=== PATIENT | male | born 1985 | race Two or more races ===

== ENCOUNTER 2016-10-03 08:49 | Emergency (ER) | payer BC ==
[~2016-10-03] VITALS: Ht 170.2 cm; Wt 81.6 kg
[2016-10-03 08:50] VITALS: BP 141/102
[2016-10-03 09:11] LABS: Basophils # (auto) 0 uL; Basophils % (auto) 0.6 % (0.0-2.0); Eosinophils # (auto) 0.1 uL; Eosinophils % (auto) 2.1 % (0.0-7.0); Hematocrit 47.3 % (41.0-53.0); Hemoglobin 15.7 g/dL (13.5-17.5); Lymphocytes % (auto) 30.9 % (10.0-50.0); Mean Corpuscular Hemoglobin 30.1 pg (28.0-32.0); Mean Corpuscular Hgb Conc. 33.3 g/dL (32.0-36.0); Mean Corpuscular Volume 90.7 fL (80.0-100.0); Monocytes # (auto) 0.5 uL; Monocytes % (auto) 7.9 % (0.0-12.0); Neutrophils # (auto) 3.7 uL; Neutrophils % (auto) 58.5 % (37.0-80.0); Platelet Count (auto) 469 10^3/uL (140-450); White Blood Cell 6.4 10^3/uL (4.4-10.8)
[2016-10-03 09:32] LABS: Albumin 4.6 g/dL (3.4-5.0); BUN/Creatinine Ratio 10.1; Bilirubin, Total 0.5 mg/dL (0.2-1.0); Calcium 9.3 mg/dL (8.5-10.1); Magnesium 2.4 mg/dL (1.6-2.6); Potassium 3.9 mmol/L (3.5-5.1); Total Protein 8.1 g/dL (6.4-8.2)
[2016-10-03] MEDS ORDERED: ALPRAZolam 0.5 MG TAB PO ONE (11:45)
[2016-10-03] MEDS ORDERED: KETOROLAC TROMETH 60MG/2ML VIAL IM ONE (11:45)
== END 2016-10-03 12:42 | disposition home or self-care (01) ==
LOC: ER 08:49
DX: F41.1 Generalized anxiety disorder (principal); K21.9 Gastro-esophageal reflux disease without esophagitis; Z87.11 Personal history of peptic ulcer disease; Z91.018 Allergy to other foods
CPT/HCPCS: 36415; 80053; 83735; 84484; 85025; 85049; 93005; 96372; 99285; J1885

== ENCOUNTER → 2016-10-29 | Outpatient (CLI) | payer BC ==
[2016-10-29 11:54] LABS: Urine RBC None Seen /hpf (0 - 3)
[2016-10-29 12:19] LABS: Albumin 4.6 g/dL (3.4-5.0); BUN/Creatinine Ratio 9.4; Bilirubin, Total 0.3 mg/dL (0.2-1.0); Calcium 9.4 mg/dL (8.5-10.1); Potassium 4.1 mmol/L (3.5-5.1); Total Protein 8.4 g/dL (6.4-8.2)
[2016-10-29 12:25] LABS: Urine Bilirubin Negative (Negative); Urine Blood Negative /uL (Negative); Urine Color Yellow (Yellow); Urine Glucose Normal (Normal); Urine Ketone Negative (Negative); Urine Nitrite Negative (Negative); Urine Urobilinogen Normal (Negative)
[2016-10-29 12:34] LABS: Basophils # (auto) 0 uL; Basophils % (auto) 0.5 % (0.0-2.0); Eosinophils # (auto) 0.1 uL; Eosinophils % (auto) 1.6 % (0.0-7.0); Hematocrit 46.6 % (41.0-53.0); Hemoglobin 15.1 g/dL (13.5-17.5); Lymphocytes # (auto) 2.2 uL; Mean Corpuscular Hemoglobin 29.9 pg (28.0-32.0); Mean Corpuscular Hgb Conc. 32.5 g/dL (32.0-36.0); Mean Corpuscular Volume 91.9 fL (80.0-100.0); Mean Platelet Volume 7.8 fL (7.4-10.4); Monocytes # (auto) 0.4 uL; Monocytes % (auto) 7.2 % (0.0-12.0); Neutrophils # (auto) 3.3 uL; Neutrophils % (auto) 54.7 % (37.0-80.0); Platelet Count (auto) 386 10^3/uL (140-450); Red Cell Distribution Width 12.7 % (11.6-16.0)
== END | disposition home or self-care (01) ==
LOC: LAB 11:27
PROVIDERS: ATTEND Internal Medicine
DX: K21.9 Gastro-esophageal reflux disease without esophagitis (principal)
CPT/HCPCS: 36415; 80053; 80061; 81001; 84439; 84443; 85025; 85379; 85652; 86677

== ENCOUNTER 2018-01-03 10:24 | Inpatient (IN) | payer BC, OTHER ==
[~2018-01-03] VITALS: Ht 170.2 cm; Wt 93.0 kg
[2018-01-03] MEDS ORDERED: MORPHINE SULFATE 8mg/ml INJ SDV IV ONE (11:15)
[2018-01-03] MEDS ORDERED: ONDANSETRON HCL 4 MG/2 ML VIAL IV ONE (11:15)
[2018-01-03 11:16] LABS: Basophils # (auto) 0.1 uL; Basophils % (auto) 0.5 % (0.0-2.0); Eosinophils # (auto) 0.1 uL; Eosinophils % (auto) 0.6 % (0.0-7.0); Hematocrit 47.3 % (41.0-53.0); Hemoglobin 16.3 g/dL (13.5-17.5); Lymphocytes # (auto) 2.3 uL; Lymphocytes % (auto) 19.1 % (10.0-50.0); Mean Corpuscular Hemoglobin 30.9 pg (28.0-32.0); Mean Corpuscular Hgb Conc. 34.4 g/dL (32.0-36.0); Mean Corpuscular Volume 89.8 fL (80.0-100.0); Monocytes # (auto) 0.9 uL; Monocytes % (auto) 7.3 % (0.0-12.0); Neutrophils # (auto) 8.6 uL; Neutrophils % (auto) 72.5 % (37.0-80.0); Nucleated Red Blood Cells % 0.1 %; Platelet Count (auto) 350 10^3/uL (140-450); Red Blood Cells 5.26 10^6/uL (4.5-5.90); Red Cell Distribution Width 13.1 % (11.8-14.3); White Blood Cell 11.8 10^3/uL (4.4-10.8)
[2018-01-03 11:34] LABS: Albumin 4.3 g/dL (3.4-5.0); BUN/Creatinine Ratio 7.1; Bilirubin, Total 0.9 mg/dL (0.2-1.0); Calcium 9.2 mg/dL (8.5-10.1); Potassium 3.9 mmol/L (3.5-5.1); Total Protein 8.4 g/dL (6.4-8.2)
[2018-01-03] MEDS ORDERED: SODIUM CHLORIDE 0.9% 1,000 ML IV ONE (11:45)
[2018-01-03] MEDS ORDERED: LORazepam 2MG/ML-1ML VIAL IV ONE (11:45)
[2018-01-03] MEDS ORDERED: D5W/SOD CHL 0.45%/KCL 20MEQ 1,000 ML IV ONE (12:15)
[2018-01-03] MEDS ORDERED: MORPHINE SULFATE 8mg/ml INJ SDV IV PRN (12:15)
[2018-01-03] MEDS ORDERED: metroNIDAZOLE 500MG/100ML 100 ML IV ONE (12:15)
[2018-01-03] MEDS ORDERED: LORazepam 2MG/ML-1ML VIAL IV PRN (12:15)
[2018-01-03] MEDS ORDERED: LEVOFLOXACIN 750MG 150 ML IV ONE (12:15)
[2018-01-03] MEDS ORDERED: PANTOPRAZOLE 40 MG/10 ML VIAL IV ONE (12:45)
[2018-01-03] MEDS: ONDANSETRON HCL 4 MG/2 ML VIAL IV PRN ×2 (15:32→18:36)
[2018-01-03 17:39] VITALS: BP 118/84
[2018-01-03 17:59] VITALS: BP 118/84
[2018-01-03] MEDS: HYDROcodone-ACET 5/325MG TAB PO PRN (18:02)
[2018-01-03] MEDS: metroNIDAZOLE 500MG/100ML 100 ML IV SCH (18:03)
[2018-01-03] MEDS ORDERED: PROMETHAZINE HCL 25 MG/ML 1ML IV ONE (20:45)
[2018-01-03 21:30] VITALS: BP 123/77
[2018-01-04] MEDS: metroNIDAZOLE 500MG/100ML 100 ML IV SCH ×5 (00:09→23:56)
[2018-01-04 04:46] VITALS: BP 119/68
[2018-01-04] MEDS: HYDROcodone-ACET 5/325MG TAB PO PRN ×2 (04:55→13:39)
[2018-01-04 05:29] LABS: Urine Bacteria NONE SEEN /hpf (None Seen); Urine Blood Negative /uL (Negative); Urine Specific Gravity 1.012 (1.001-1.035); Urine WBC <1 /hpf (0 - 3)
[2018-01-04 05:36] LABS: INR 1.03 (0.9-1.15); Prothrombin Time 11.2 sec (9.37-12.3)
[2018-01-04 05:49] LABS: Albumin 3.8 g/dL (3.4-5.0); BUN/Creatinine Ratio 7.9; Bilirubin, Total 0.8 mg/dL (0.2-1.0); Calcium 8.7 mg/dL (8.5-10.1); Potassium 3.9 mmol/L (3.5-5.1); Total Protein 7.6 g/dL (6.4-8.2)
[2018-01-04 09:00] VITALS: BP 114/75
[2018-01-04] MEDS: LEVOFLOXACIN 750MG 150 ML IV SCH (09:47)
[2018-01-04] MEDS: PANTOPRAZOLE 40 MG/10 ML VIAL IV SCH (09:47)
[2018-01-04] MEDS ORDERED: MORPHINE SULFATE 8mg/ml INJ SDV IV PRN (11:00)
[2018-01-04] MEDS: DOCUSATE SOD 100 MG CAP PO SCH ×2 (12:07→21:20)
[2018-01-04 13:00] VITALS: BP 110/67
[2018-01-04] MEDS: D5W/SOD CHL 0.45%/KCL 20MEQ 1,000 ML IV SCH ×3 (13:39→23:56)
[2018-01-04 22:00] VITALS: BP 126/74
[2018-01-05 05:30] VITALS: BP 115/63
[2018-01-05] MEDS: metroNIDAZOLE 500MG/100ML 100 ML IV SCH (05:53)
[2018-01-05 05:59] LABS: Basophils # (auto) 0.1 uL; Basophils % (auto) 0.9 % (0.0-2.0); Eosinophils # (auto) 0.1 uL; Eosinophils % (auto) 1.1 % (0.0-7.0); Hematocrit 41.4 % (41.0-53.0); Hemoglobin 14.3 g/dL (13.5-17.5); Lymphocytes # (auto) 2.4 uL; Lymphocytes % (auto) 25.9 % (10.0-50.0); Mean Corpuscular Hemoglobin 31.1 pg (28.0-32.0); Mean Corpuscular Hgb Conc. 34.4 g/dL (32.0-36.0); Mean Corpuscular Volume 90.4 fL (80.0-100.0); Monocytes # (auto) 0.9 uL; Monocytes % (auto) 10.2 % (0.0-12.0); Neutrophils # (auto) 5.7 uL; Neutrophils % (auto) 61.9 % (37.0-80.0); Nucleated Red Blood Cells % 0.1 %; Platelet Count (auto) 307 10^3/uL (140-450); Red Blood Cells 4.58 10^6/uL (4.5-5.90); Red Cell Distribution Width 12.9 % (11.8-14.3); White Blood Cell 9.3 10^3/uL (4.4-10.8)
[2018-01-05 06:08] LABS: Albumin 3.5 g/dL (3.4-5.0); Calcium 8.6 mg/dL (8.5-10.1); Potassium 3.8 mmol/L (3.5-5.1)
[2018-01-05 06:18] LABS: Bilirubin, Total 0.7 mg/dL (0.2-1.0); Total Protein 7.2 g/dL (6.4-8.2)
[2018-01-05 09:15] VITALS: BP 113/71
[2018-01-05] MEDS: LEVOFLOXACIN 750MG 150 ML IV SCH (10:57)
[2018-01-05] MEDS: PANTOPRAZOLE 40 MG/10 ML VIAL IV SCH (10:57)
[2018-01-05] MEDS: DOCUSATE SOD 100 MG CAP PO SCH (10:57)
[2018-01-05 12:18] VITALS: BP 143/77
[2018-01-05 12:53] VITALS: BP 143/77
== END 2018-01-05 14:30 | disposition home or self-care (01) | DRG 392 ==
LOC: ER 10:24 → OVERFLOW 10:25 → EAST 17:51
PROVIDERS: ADMIT Internal Medicine; ATTEND Internal Medicine
DX: K57.32 Diverticulitis of large intestine without perforation or abscess without bleeding (principal); K76.0 Fatty (change of) liver, not elsewhere classified; R16.0 Hepatomegaly, not elsewhere classified; E66.9 Obesity, unspecified; F41.9 Anxiety disorder, unspecified; K21.9 Gastro-esophageal reflux disease without esophagitis; R79.89 Other specified abnormal findings of blood chemistry; I10 Essential (primary) hypertension; Z83.3 Family history of diabetes mellitus; Z87.11 Personal history of peptic ulcer disease; Z90.49 Acquired absence of other specified parts of digestive tract; Z68.32 Body mass index [BMI] 32.0-32.9, adult
CPT/HCPCS: 36415; 74176; 76705; 80053; 81001; 83690; 85025; 85610; 85730; 87040; 96361; 96365; 96367; 96375; 99291; C9113; J1956; J2270; J2405; J3490

== ENCOUNTER 2019-05-10 06:06 | Emergency (ER) | payer BC, OTHER ==
[~2019-05-10] VITALS: Ht 170.2 cm; Wt 88.5 kg
[2019-05-10 07:37] LABS: Urine Bacteria NONE SEEN /hpf (None Seen); Urine Blood Negative /uL (Negative); Urine Mucus FEW (None Seen); Urine Specific Gravity 1.025 (1.001-1.035); Urine WBC 1 /hpf (0 - 3)
[2019-05-10 07:44] VITALS: BP 117/82
[2019-05-10] MEDS ORDERED: CYCLOBENZAPRINE HCL 10 MG TAB PO ONE (08:00)
[2019-05-10] MEDS ORDERED: KETOROLAC TROMETH 60MG/2ML VIAL IM ONE (08:00)
== END 2019-05-10 08:43 | disposition home or self-care (01) ==
LOC: ER 06:16
DX: S29.012A Strain of muscle and tendon of back wall of thorax, initial encounter (principal); K76.0 Fatty (change of) liver, not elsewhere classified; M19.90 Unspecified osteoarthritis, unspecified site; K21.9 Gastro-esophageal reflux disease without esophagitis; Z91.018 Allergy to other foods; X50.0XXA Overexertion from strenuous movement or load, initial encounter; Y93.89 Activity, other specified; Y99.8 Other external cause status; Y92.89 Other specified places as the place of occurrence of the external cause
CPT/HCPCS: 74176; 81001; 96372; 99284; J1885

== ENCOUNTER 2019-09-13 23:38 | Emergency (ER) | payer OTHER ==
[~2019-09-13] VITALS: Ht 175.3 cm; Wt 90.7 kg
[2019-09-14 00:59] VITALS: BP 126/85
[2019-09-14] MEDS: methylPREDNISolone SOD SUCC 125 MG/2 ML VL IM ONE (01:25)
== END 2019-09-14 01:43 | disposition home or self-care (01) ==
LOC: ER 23:38
DX: T78.1XXA Other adverse food reactions, not elsewhere classified, initial encounter (principal); M19.90 Unspecified osteoarthritis, unspecified site; K21.9 Gastro-esophageal reflux disease without esophagitis; Z90.49 Acquired absence of other specified parts of digestive tract; Z90.89 Acquired absence of other organs; Z91.018 Allergy to other foods; Y92.89 Other specified places as the place of occurrence of the external cause
CPT/HCPCS: 96372; 99283; J2930

== ENCOUNTER 2020-02-27 14:56 | Emergency (ER) | payer OTHER, BC ==
[~2020-02-27] VITALS: Ht 170.2 cm; Wt 90.7 kg
[2020-02-27] MEDS ORDERED: SODIUM CHLORIDE 0.9% 1,000 ML IV ONE ×3 (14:57→15:25)
[2020-02-27] MEDS ORDERED: SODIUM CHLORIDE 0.9% 1,000 ML IVB ONE (15:25)
[2020-02-27] MEDS ORDERED: ONDANSETRON HCL 4 MG/2 ML VIAL IV ONE (15:30)
[2020-02-27] MEDS ORDERED: MORPHINE SULFATE 4 MG/ML SYR/VIAL IV ONE (15:30)
[2020-02-27 15:42] LABS: Urine Bacteria NONE SEEN /hpf (None Seen); Urine Blood Negative /uL (Negative); Urine Mucus FEW (None Seen); Urine Specific Gravity 1.016 (1.001-1.035); Urine WBC 1 /hpf (0 - 3)
[2020-02-27 16:00] LABS: Basophils # (auto) 0.1 10 ^3/uL (0-0.2); Basophils % (auto) 0.9 % (0.0-2.0); Eosinophils # (auto) 0.1 10 ^3/uL (0-0.8); Eosinophils % (auto) 0.7 % (0.0-7.0); Hematocrit 44.1 % (41.0-53.0); Hemoglobin 15.4 g/dL (13.5-17.5); Lymphocytes # (auto) 2.4 10 ^3/uL (0.4-5.4); Lymphocytes % (auto) 26.4 % (10.0-50.0); Mean Corpuscular Hemoglobin 31.5 pg (28.0-32.0); Mean Corpuscular Volume 90.1 fL (80.0-100.0); Monocytes # (auto) 0.7 10 ^3/uL (0-1.3); Monocytes % (auto) 8.2 % (0.0-12.0); Neutrophils # (auto) 5.7 10 ^3/uL (1.6-8.6); Neutrophils % (auto) 63.8 % (37.0-80.0); Nucleated Red Blood Cells % 0.2 %; Platelet Count (auto) 373 10^3/uL (140-450); Red Blood Cells 4.89 10^6/uL (4.5-5.90); Red Cell Distribution Width 12.8 % (11.8-14.3)
[2020-02-27 16:23] LABS: Albumin 4.2 g/dL (3.4-5.0); Anion Gap 7 (5-15); Blood Urea Nitrogen 12 mg/dL (7-18); Carbon Dioxide 27 mmol/L (21-32); Chloride 102 mmol/L (98-107); Glucose 128 mg/dL (74-106); Potassium 3.5 mmol/L (3.5-5.1); Sodium 136 mmol/L (136-145)
[2020-02-27 16:25] LABS: Alanine Aminotransferase 169 U/L (16-61); BUN/Creatinine Ratio 11.7; GFR African American 105 mL/min; GFR Non-African American 87 mL/min
[2020-02-27 16:32] LABS: Alkaline Phosphatase 90 U/L (45-117); Aspartate Aminotransferase 97 U/L (15-37); Bilirubin, Total 1.1 mg/dL (0.2-1.0)
[2020-02-27 17:48] VITALS: BP 144/87
== END 2020-02-27 17:55 | disposition home or self-care (01) ==
LOC: ER 14:56
DX: E86.0 Dehydration (principal); R11.2 Nausea with vomiting, unspecified; R74.8 Abnormal levels of other serum enzymes; R10.84 Generalized abdominal pain; M19.90 Unspecified osteoarthritis, unspecified site; K21.9 Gastro-esophageal reflux disease without esophagitis
CPT/HCPCS: 36415; 71045; 74176; 80053; 81001; 83690; 84484; 85025

== ENCOUNTER 2020-06-15 16:40 | Emergency (ER) | payer BC, OTHER ==
[~2020-06-15] VITALS: Ht 170.2 cm; Wt 79.4 kg
[2020-06-15] MEDS ORDERED: MORPHINE SULFATE 4 MG/ML SYR/VIAL IV ONE (17:00)
[2020-06-15] MEDS ORDERED: ONDANSETRON HCL 4 MG/2 ML VIAL IV ONE (17:00)
[2020-06-15] MEDS ORDERED: SODIUM CHLORIDE 0.9% 1,000 ML IV ONE ×2 (17:00→18:30)
[2020-06-15 17:10] LABS: Basophils # (auto) 0.1 10 ^3/uL (0-0.2); Basophils % (auto) 0.8 % (0.0-2.0); Eosinophils # (auto) 0.1 10 ^3/uL (0-0.8); Eosinophils % (auto) 0.9 % (0.0-7.0); Hematocrit 41.2 % (41.0-53.0); Hemoglobin 14.3 g/dL (13.5-17.5); Lymphocytes # (auto) 2.7 10 ^3/uL (0.4-5.4); Lymphocytes % (auto) 28.2 % (10.0-50.0); Mean Corpuscular Hemoglobin 30.3 pg (28.0-32.0); Mean Corpuscular Hgb Conc. 34.6 g/dL (32.0-36.0); Mean Corpuscular Volume 87.5 fL (80.0-100.0); Monocytes # (auto) 0.5 10 ^3/uL (0-1.3); Neutrophils # (auto) 6.3 10 ^3/uL (1.6-8.6); Neutrophils % (auto) 65.1 % (37.0-80.0); Nucleated Red Blood Cells % 0.1 %; Platelet Count (auto) 340 10^3/uL (140-450); Red Blood Cells 4.71 10^6/uL (4.5-5.90); Red Cell Distribution Width 12.6 % (11.8-14.3); White Blood Cell 9.7 10^3/uL (4.4-10.8)
[2020-06-15 17:59] LABS: Albumin 4.1 g/dL (3.4-5.0); BUN/Creatinine Ratio 9.7; Potassium 3.6 mmol/L (3.5-5.1)
[2020-06-15 18:01] LABS: Bilirubin, Total 0.5 mg/dL (0.2-1.0); Total Protein 7.1 g/dL (6.4-8.2)
[2020-06-15 18:06] LABS: Urine WBC None Seen /hpf (0 - 3)
[2020-06-15] MEDS ORDERED: metroNIDAZOLE 500MG/100ML 100 ML IV ONE (18:30)
[2020-06-15] MEDS ORDERED: cefTRIAXone 1GM/50ML D5W 50 ML IV ONE (18:30)
[2020-06-15 18:57] LABS: Urine Bacteria NONE SEEN /hpf (None Seen); Urine Blood Negative /uL (Negative); Urine Specific Gravity 1.003 (1.001-1.035)
[2020-06-15 20:55] VITALS: BP 109/59
== END 2020-06-15 20:58 | disposition home or self-care (01) ==
LOC: ER 16:40
DX: K57.92 Diverticulitis of intestine, part unspecified, without perforation or abscess without bleeding (principal); K21.9 Gastro-esophageal reflux disease without esophagitis; F41.9 Anxiety disorder, unspecified
CPT/HCPCS: 36415; 74176; 80053; 81001; 83690; 85025; 96365; 96367; 96375; 99284; J0696; J2270; J2405; J3490; J7030

== ENCOUNTER 2021-01-13 20:07 | Emergency (ER) | payer BC, OTHER ==
[~2021-01-13] VITALS: Ht 170.2 cm; Wt 77.1 kg
[2021-01-13 21:10] LABS: Basophils # (auto) 0 10 ^3/uL (0-0.2); Basophils % (auto) 0.5 % (0.0-2.0); Eosinophils # (auto) 0.1 10 ^3/uL (0-0.8); Eosinophils % (auto) 0.7 % (0.0-7.0); Hemoglobin 15.5 g/dL (13.5-17.5); Lymphocytes # (auto) 2.8 10 ^3/uL (0.4-5.4); Lymphocytes % (auto) 38.2 % (10.0-50.0); Mean Corpuscular Hemoglobin 30.4 pg (28.0-32.0); Mean Corpuscular Hgb Conc. 35.3 g/dL (32.0-36.0); Mean Corpuscular Volume 86.1 fL (80.0-100.0); Monocytes # (auto) 0.4 10 ^3/uL (0-1.3); Monocytes % (auto) 5.8 % (0.0-12.0); Neutrophils # (auto) 4.1 10 ^3/uL (1.6-8.6); Neutrophils % (auto) 54.8 % (37.0-80.0); Nucleated Red Blood Cells % 0.1 %; Platelet Count (auto) 376 10^3/uL (140-450); Red Blood Cells 5.11 10^6/uL (4.5-5.90); Red Cell Distribution Width 13.1 % (11.8-14.3); White Blood Cell 7.5 10^3/uL (4.4-10.8)
[2021-01-13 21:26] LABS: Albumin 4.4 g/dL (3.4-5.0); Anion Gap 8 (5-15); Blood Urea Nitrogen 10 mg/dL (7-18); Calcium 9.2 mg/dL (8.5-10.1); Carbon Dioxide 25 mmol/L (21-32); Chloride 105 mmol/L (98-107); Glucose 95 mg/dL (74-106); Potassium 3.9 mmol/L (3.5-5.1); Sodium 138 mmol/L (136-145)
[2021-01-13 21:30] LABS: Partial Thromboplastin Time 25.7 sec (23.0-31.2)
[2021-01-13 21:31] LABS: Alanine Aminotransferase 31 U/L (16-61); Alkaline Phosphatase 65 U/L (45-117); Aspartate Aminotransferase 27 U/L (15-37); BUN/Creatinine Ratio 10.8; Bilirubin, Total 0.4 mg/dL (0.2-1.0); GFR African American 118 mL/min; GFR Non-African American 97 mL/min; Total Protein 7.8 g/dL (6.4-8.2)
[2021-01-13 23:38] VITALS: BP 142/72
[2021-01-14 00:35] LABS: Alcohol, Urine < 3.0 mg/dL (0-10); Amphetamine Screen, Urine NEGATIVE (NEGATIVE); Barbiturate Scree,Urine NEGATIVE (NEGATIVE); Benzodiazephine Screen, Urine NEGATIVE (NEGATIVE); Cannabinoid Screen, Urine NEGATIVE (NEGATIVE); Cocaine Screen, Urine NEGATIVE (NEGATIVE); Opiate Scree,Urine NEGATIVE (NEGATIVE); Phencyclidine Screen, Urine NEGATIVE (NEGATIVE)
== END 2021-01-14 00:32 | disposition home or self-care (01) ==
LOC: ER 20:09
DX: R00.2 Palpitations (principal)
CPT/HCPCS: 36415; 71045; 80053; 80307; 83880; 84443; 84484; 85025; 85610; 85730; 93005

== ENCOUNTER 2021-03-02 00:05 | Inpatient (IN) | payer BC ==
[~2021-03-02] VITALS: Ht 170.2 cm; Wt 87.3 kg
[2021-03-02] MEDS ORDERED: ONDANSETRON HCL 4 MG/2 ML VIAL IV ONE (01:30)
[2021-03-02] MEDS ORDERED: SODIUM CHLORIDE 0.9% 1,000 ML IV ONE ×2 (01:30→05:30)
[2021-03-02 01:37] LABS: Hemoglobin 14.5 g/dL (13.5-17.5); Mean Corpuscular Hemoglobin 29.7 pg (28.0-32.0); Mean Corpuscular Hgb Conc. 33.7 g/dL (32.0-36.0); Mean Corpuscular Volume 88.3 fL (80.0-100.0); Red Blood Cells 4.87 10^6/uL (4.5-5.90); Red Cell Distribution Width 13.7 % (11.8-14.3); White Blood Cell 12.6 10^3/uL (4.4-10.8)
[2021-03-02 01:39] LABS: Basophils % (manual) 0 (0.0-2.0); Blast Cells 0; Eosinophils % (manual) 0 (0-7); Metamyelocytes % 0; Monocytes % (manual) 0 (0-12); Myelocytes % 0; Promyelocytes % 0; Reactive Lymphocytes 0
[2021-03-02 01:45] LABS: Albumin 4.5 g/dL (3.4-5.0); BUN/Creatinine Ratio 13.4; Calcium 9.1 mg/dL (8.5-10.1); Potassium 3.9 mmol/L (3.5-5.1)
[2021-03-02 01:48] LABS: Bilirubin, Total 0.9 mg/dL (0.2-1.0); Total Protein 7.9 g/dL (6.4-8.2)
[2021-03-02] MEDS ORDERED: KETOROLAC TROMETH 30 MG/ML 1ML VIAL IV ONE (02:00)
[2021-03-02] MEDS ORDERED: IOHEXOL 300 MG/ML 100ML BOTTLE IJ ONE (02:11)
[2021-03-02 02:20] LABS: Amylase 46 U/L (25-115); Blood Alcohol < 3.0 mg/dL (0-5); Lipase 68 U/L (73-393)
[2021-03-02 02:58] LABS: Band Neutrophils % (manual) 31; Lymphocytes % (manual) 5 (10.0-50.0)
[2021-03-02] MEDS ORDERED: metroNIDAZOLE 500MG/100ML 100 ML IV ONE (06:15)
[2021-03-02] MEDS ORDERED: levoFLOXacin 500MG 100 ML IV ONE (06:15)
[2021-03-02] MEDS ORDERED: ACETAMINOPHEN 500 MG TAB PO PRN (10:00)
[2021-03-02] MEDS ORDERED: MORPHINE SULFATE INJECTION 2 MG/ML SYRG IV PRN (10:00)
[2021-03-02] MEDS: PANTOPRAZOLE 40 MG/10 ML VIAL INJ IV SCH (10:27)
[2021-03-02] MEDS: ONDANSETRON HCL 4 MG/2 ML VIAL IV PRN ×2 (10:28→22:45)
[2021-03-02] MEDS: D5W/SOD CHL 0.45% 1,000 ML IV SCH ×2 (10:29→18:05)
[2021-03-02] MEDS ORDERED: GASTROGRAFIN 120 ML SOL ONE (10:30)
[2021-03-02 13:00] VITALS: BP 102/61
[2021-03-02] MEDS: metroNIDAZOLE 500MG/100ML 100 ML IV SCH ×2 (14:38→22:26)
[2021-03-02] MEDS: IBUPROFEN 400 MG TAB PO PRN (16:46)
[2021-03-02 17:00] VITALS: BP 114/68
[2021-03-02 22:00] VITALS: BP 103/59
[2021-03-03] MEDS: D5W/SOD CHL 0.45% 1,000 ML IV SCH ×2 (02:00→04:14)
[2021-03-03 05:00] VITALS: BP 108/65
[2021-03-03] MEDS: metroNIDAZOLE 500MG/100ML 100 ML IV SCH (05:20)
[2021-03-03] MEDS: IBUPROFEN 400 MG TAB PO PRN (05:24)
[2021-03-03 05:28] LABS: Basophils # (auto) 0 10 ^3/uL (0-0.2); Basophils % (auto) 0.3 % (0.0-2.0); Eosinophils # (auto) 0 10 ^3/uL (0-0.8); Eosinophils % (auto) 0.9 % (0.0-7.0); Hematocrit 35.3 % (41.0-53.0); Hemoglobin 12.3 g/dL (13.5-17.5); Lymphocytes # (auto) 1.3 10 ^3/uL (0.4-5.4); Lymphocytes % (auto) 25.8 % (10.0-50.0); Mean Corpuscular Hemoglobin 30.7 pg (28.0-32.0); Mean Corpuscular Volume 87.9 fL (80.0-100.0); Monocytes # (auto) 0.5 10 ^3/uL (0-1.3); Monocytes % (auto) 9.4 % (0.0-12.0); Neutrophils # (auto) 3.2 10 ^3/uL (1.6-8.6); Neutrophils % (auto) 63.6 % (37.0-80.0); Red Blood Cells 4.01 10^6/uL (4.5-5.90); Red Cell Distribution Width 13.6 % (11.8-14.3)
[2021-03-03 05:44] LABS: Albumin 3.2 g/dL (3.4-5.0); Calcium 7.4 mg/dL (8.5-10.1); Potassium 3.4 mmol/L (3.5-5.1)
[2021-03-03 05:47] LABS: BUN/Creatinine Ratio 9.4; Bilirubin, Total 0.5 mg/dL (0.2-1.0); Total Protein 5.9 g/dL (6.4-8.2)
[2021-03-03 08:51] VITALS: BP 99/64
[2021-03-03] MEDS ORDERED: cefTRIAXone 1GM/50ML D5W 50 ML IV SCH (09:00)
[2021-03-03] MEDS: PANTOPRAZOLE 40 MG/10 ML VIAL INJ IV SCH (09:52)
[2021-03-03] MEDS ORDERED: POTASSIUM CHL 20 Meq TABLET PO ONE (10:45)
== END 2021-03-03 13:24 | disposition home or self-care (01) | DRG 872 ==
LOC: EEVIPCON 00:05 → ER 00:05 → OVERFLOW 10:08 → CENTRAL 12:25
PROVIDERS: ADMIT Nurse Practitioner Acute Care; ATTEND Internal Medicine
DX: A41.9 Sepsis, unspecified organism (principal); Z20.822 Contact with and (suspected) exposure to COVID-19; E66.9 Obesity, unspecified; F41.9 Anxiety disorder, unspecified; K52.9 Noninfective gastroenteritis and colitis, unspecified; K57.30 Diverticulosis of large intestine without perforation or abscess without bleeding; K76.0 Fatty (change of) liver, not elsewhere classified; M06.9 Rheumatoid arthritis, unspecified; M19.90 Unspecified osteoarthritis, unspecified site; Z79.899 Other long term (current) drug therapy; Z68.30 Body mass index [BMI] 30.0-30.9, adult; Z90.49 Acquired absence of other specified parts of digestive tract
CPT/HCPCS: 36415; 74177; 74250; 80053; 80320; 82150; 83690; 85007; 85025; 85027; 85652; 87040; 87426; 96361; 96365; 96367; 96375; C9113; G0378; J0696; J1885; J1956; J2405; J3490

== ENCOUNTER 2021-09-04 22:13 | Emergency (ER) | payer BC ==
[~2021-09-04] VITALS: Ht 170.2 cm; Wt 77.1 kg
[2021-09-04] MEDS ORDERED: methylPREDNISolone SOD SUCC 125 MG/2 ML VL IV ONE (22:30)
[2021-09-04] MEDS ORDERED: diphenhdrAMINE HCL 50 MG/1 ML VL IV ONE (22:30)
[2021-09-04 22:36] VITALS: BP 140/83
== END 2021-09-05 00:02 | disposition home or self-care (01) ==
LOC: ER 22:13
DX: T78.1XXA Other adverse food reactions, not elsewhere classified, initial encounter (principal); M19.90 Unspecified osteoarthritis, unspecified site; Z90.49 Acquired absence of other specified parts of digestive tract; Z90.89 Acquired absence of other organs; Z88.8 Allergy status to other drugs, medicaments and biological substances; Y92.89 Other specified places as the place of occurrence of the external cause
CPT/HCPCS: 96374; 96375; 99284; J1200; J2930

== ENCOUNTER → 2021-09-22 | Outpatient (CLI) | payer BC | END | disposition home or self-care (01) | LOC: LAB 09:09 | PROVIDERS: ATTEND Nurse Practitioner Family | DX: N39.0 Urinary tract infection, site not specified (principal) | CPT/HCPCS: 87086 ==

== ENCOUNTER → 2021-09-25 | Outpatient (CLI) | payer BC ==
[2021-09-25 14:27] LABS: Basophils # (auto) 0 10 ^3/uL (0-0.2); Basophils % (auto) 0.5 % (0.0-2.0); Eosinophils # (auto) 0.1 10 ^3/uL (0-0.8); Eosinophils % (auto) 1.3 % (0.0-7.0); Hematocrit 42.1 % (41.0-53.0); Hemoglobin 14.8 g/dL (13.5-17.5); Lymphocytes # (auto) 2.7 10 ^3/uL (0.4-5.4); Lymphocytes % (auto) 43.5 % (10.0-50.0); Mean Corpuscular Hemoglobin 29.9 pg (28.0-32.0); Mean Corpuscular Hgb Conc. 35.2 g/dL (32.0-36.0); Mean Corpuscular Volume 84.9 fL (80.0-100.0); Monocytes # (auto) 0.5 10 ^3/uL (0-1.3); Monocytes % (auto) 8.2 % (0.0-12.0); Neutrophils # (auto) 2.9 10 ^3/uL (1.6-8.6); Neutrophils % (auto) 46.5 % (37.0-80.0); Red Blood Cells 4.96 10^6/uL (4.5-5.90); Red Cell Distribution Width 13.2 % (11.8-14.3); White Blood Cell 6.1 10^3/uL (4.4-10.8)
[2021-09-25 15:06] LABS: Albumin 4.2 g/dL (3.4-5.0); Calcium 8.7 mg/dL (8.5-10.1); Potassium 4.1 mmol/L (3.5-5.1)
[2021-09-25 15:10] LABS: BUN/Creatinine Ratio 10.5; Bilirubin, Total 0.4 mg/dL (0.2-1.0); Total Protein 7.2 g/dL (6.4-8.2)
== END | disposition home or self-care (01) ==
LOC: LAB 14:04
PROVIDERS: ATTEND Student in an Organized Health Care Education/Training Program
DX: R10.84 Generalized abdominal pain (principal)
CPT/HCPCS: 36415; 80053; 80061; 82728; 85025

== ENCOUNTER 2021-12-14 07:26 | Inpatient (IN) | payer BC ==
[~2021-12-14] VITALS: Ht 170.2 cm; Wt 98.4 kg
[2021-12-14] MEDS ORDERED: IPRATROPIUM BROM 0.5 MG/2.5ML INH SOL NEB ONE (07:45)
[2021-12-14] MEDS ORDERED: ALBUTEROL SULF 2.5 MG/0.5ML(0.5%) NEB SOLN NEB ONE ×2 (07:45→08:00)
[2021-12-14] MEDS ORDERED: DexAMETHasone 4 MG TAB PO ONE (08:00)
[2021-12-14] MEDS ORDERED: KETOROLAC TROMETH 30 MG/ML 1ML VIAL IV ONE (09:00)
[2021-12-14 09:20] LABS: Basophils # (auto) 0.1 10 ^3/uL (0-0.2); Basophils % (auto) 0.8 % (0.0-2.0); Eosinophils # (auto) 0.1 10 ^3/uL (0-0.8); Hematocrit 42.6 % (41.0-53.0); Hemoglobin 14.6 g/dL (13.5-17.5); Lymphocytes # (auto) 3.4 10 ^3/uL (0.4-5.4); Lymphocytes % (auto) 44.4 % (10.0-50.0); Mean Corpuscular Hemoglobin 29.5 pg (28.0-32.0); Mean Corpuscular Hgb Conc. 34.4 g/dL (32.0-36.0); Mean Corpuscular Volume 85.9 fL (80.0-100.0); Monocytes # (auto) 0.6 10 ^3/uL (0-1.3); Monocytes % (auto) 8.2 % (0.0-12.0); Neutrophils # (auto) 3.5 10 ^3/uL (1.6-8.6); Neutrophils % (auto) 45.6 % (37.0-80.0); Nucleated Red Blood Cells % 0.1 %; Red Blood Cells 4.96 10^6/uL (4.5-5.90); Red Cell Distribution Width 13.3 % (11.8-14.3); White Blood Cell 7.8 10^3/uL (4.4-10.8)
[2021-12-14 09:51] LABS: Urine Bacteria NONE SEEN /hpf (None Seen); Urine Blood Negative /uL (Negative); Urine Specific Gravity 1.004 (1.001-1.035); Urine WBC 1 /hpf (0 - 3)
[2021-12-14 09:59] LABS: Chloride 108 mmol/L (98-107); Sodium 139 mmol/L (136-145)
[2021-12-14 10:08] LABS: Alanine Aminotransferase 34 U/L (16-61); Albumin 4.2 g/dL (3.4-5.0); Alkaline Phosphatase 66 U/L (45-117); Anion Gap 7 (5-15); Aspartate Aminotransferase 25 U/L (15-37); Bilirubin, Total 0.4 mg/dL (0.2-1.0); Blood Urea Nitrogen 8 mg/dL (7-18); Calcium 8.7 mg/dL (8.5-10.1); Carbon Dioxide 24 mmol/L (21-32); GFR African American 92 mL/min; GFR Non-African American 76 mL/min; Glucose 120 mg/dL (74-106); Magnesium 2.6 mg/dL (1.6-2.6); Total Protein 7.6 g/dL (6.4-8.2)
[2021-12-14 10:25] LABS: Lactic Acid w/Reflex 3.1 mmol/L (0.4-2.0)
[2021-12-14] MEDS ORDERED: POTASSIUM CHL 20MEQ/100ML 100 ML IV ONE (10:30)
[2021-12-14] MEDS ORDERED: POTASSIUM EFFERVESENT TAB 25 MEQ PO ONE (10:30)
[2021-12-14] MEDS ORDERED: LORazepam 2MG/ML-1ML VIAL IV ONE (10:45)
[2021-12-14] MEDS ORDERED: ASPirin 81 mg TAB PO ONE (11:00)
[2021-12-14] MEDS ORDERED: IOHEXOL 350 MG/ML 100ML IJ ONE (11:01)
[2021-12-14] MEDS ORDERED: LACTATED RINGER'S 2,000 ML IV ONE (13:10)
[2021-12-14] MEDS ORDERED: NITROGLYCERIN 0.4 MG SL TAB SL PRN (13:30)
[2021-12-14] MEDS ORDERED: MORPHINE SULFATE INJECTION 2 MG/ML SYRG IV PRN ×2 (13:30→14:15)
[2021-12-14] MEDS ORDERED: ENOXAPARIN SOD 100 MG/1 ML SYRINGE SC ONE (14:00)
[2021-12-14] MEDS ORDERED: PANTOPRAZOLE 40 MG/10 ML VIAL INJ IV ONE (14:15)
[2021-12-14] MEDS ORDERED: DOCUSATE SOD 100 MG CAP PO PRN (14:15)
[2021-12-14] MEDS ORDERED: LACTULOSE 20Gm/30ML SOLN PO PRN (14:15)
[2021-12-14] MEDS ORDERED: LORazepam 0.5 MG TAB PO PRN (14:15)
[2021-12-14] MEDS ORDERED: ONDANSETRON HCL 4 MG/2 ML VIAL IV PRN (14:15)
[2021-12-14] MEDS ORDERED: MONTELUKAST SODIUM 10 MG TAB PO ONE (14:15)
[2021-12-14] MEDS ORDERED: ACETAMINOPHEN 500 MG TAB PO PRN (14:15)
[2021-12-14] MEDS ORDERED: hydrALAZINE HCL 20 MG/ML VL IV PRN (14:15)
[2021-12-14] MEDS ORDERED: ALBUTEROL SULF HFA 90MCG INH 200DOSE IN PRN (14:15)
[2021-12-14 14:19] VITALS: BP 123/70
[2021-12-14] MEDS ORDERED: METOPROLOL TARTRATE 1MG/1ML-5ML VIAL IV PRN (14:30)
[2021-12-14 14:33] LABS: Basophils # (auto) 0 10 ^3/uL (0-0.2); Basophils % (auto) 0.3 % (0.0-2.0); Eosinophils # (auto) 0 10 ^3/uL (0-0.8); Eosinophils % (auto) 0.1 % (0.0-7.0); Hematocrit 38.1 % (41.0-53.0); Hemoglobin 13.2 g/dL (13.5-17.5); Lymphocytes # (auto) 0.5 10 ^3/uL (0.4-5.4); Lymphocytes % (auto) 8.3 % (10.0-50.0); Mean Corpuscular Hemoglobin 29.3 pg (28.0-32.0); Mean Corpuscular Hgb Conc. 34.7 g/dL (32.0-36.0); Mean Corpuscular Volume 84.4 fL (80.0-100.0); Monocytes # (auto) 0.1 10 ^3/uL (0-1.3); Neutrophils # (auto) 5.8 10 ^3/uL (1.6-8.6); Neutrophils % (auto) 90.3 % (37.0-80.0); Nucleated Red Blood Cells % 0.1 %; Red Blood Cells 4.51 10^6/uL (4.5-5.90); Red Cell Distribution Width 13.2 % (11.8-14.3); White Blood Cell 6.4 10^3/uL (4.4-10.8)
[2021-12-14 14:59] LABS: Magnesium 2.1 mg/dL (1.6-2.6); Potassium 4.1 mmol/L (3.5-5.1)
[2021-12-14 15:00] LABS: Phosphorus 1.3 mg/dL (2.5-4.90)
[2021-12-14 15:11] LABS: Bilirubin, Total 0.4 mg/dL (0.2-1.0); Total Protein 7.1 g/dL (6.4-8.2)
[2021-12-14 17:00] VITALS: BP 131/81
[2021-12-14 17:04] LABS: Lactic Acid w/Reflex 4.8 mmol/L (0.4-2.0)
[2021-12-14 17:06] LABS: Partial Thromboplastin Time 25.8 sec (23.6-33.0)
[2021-12-14] MEDS: FUROSEMIDE 20 MG/2 ML VIAL IV SCH (18:05)
[2021-12-14] MEDS: ALBUTEROL SULF 2.5 MG/0.5ML(0.5%) NEB SOLN NEB PRN (18:44)
[2021-12-14] MEDS: BUDESONIDE (INHALATION) 0.5 MG/2 ML NEB NEB SCH (18:45)
[2021-12-14] MEDS ORDERED: CYCLOBENZAPRINE HCL 10 MG TAB PO PRN (21:45)
[2021-12-14 22:00] VITALS: BP 116/72
[2021-12-14] MEDS ORDERED: ACETYLCYSTEINE 10 %(100MG/ML) SOL 4ML NEB SCH (22:00)
[2021-12-14] MEDS ORDERED: MONTELUKAST SODIUM 10 MG TAB PO SCH (22:00)
[2021-12-14] MEDS ORDERED: BUDESONIDE (INHALATION) 180 MCG IH IN SCH (22:00)
[2021-12-14] MEDS ORDERED: ATORVASTATIN 20 MG TAB PO SCH (22:00)
[2021-12-14] MEDS: POTASSIUM CHL 20 Meq TABLET PO SCH (22:32)
[2021-12-14] MEDS: DOXYCYCLINE 100MG/250ML 250 ML IV SCH (22:32)
[2021-12-14] MEDS: ENOXAPARIN SOD 100 MG/1 ML SYRINGE SC SCH (22:33)
[2021-12-15 04:52] LABS: Basophils # (auto) 0 10 ^3/uL (0-0.2); Basophils % (auto) 0.2 % (0.0-2.0); Eosinophils # (auto) 0 10 ^3/uL (0-0.8); Hematocrit 37.1 % (41.0-53.0); Hemoglobin 13.1 g/dL (13.5-17.5); Lymphocytes # (auto) 1.3 10 ^3/uL (0.4-5.4); Lymphocytes % (auto) 15.4 % (10.0-50.0); Mean Corpuscular Hemoglobin 29.8 pg (28.0-32.0); Mean Corpuscular Hgb Conc. 35.2 g/dL (32.0-36.0); Mean Corpuscular Volume 84.6 fL (80.0-100.0); Monocytes # (auto) 0.6 10 ^3/uL (0-1.3); Monocytes % (auto) 7.3 % (0.0-12.0); Neutrophils # (auto) 6.7 10 ^3/uL (1.6-8.6); Neutrophils % (auto) 77.1 % (37.0-80.0); Nucleated Red Blood Cells % 0.1 %; Red Blood Cells 4.38 10^6/uL (4.5-5.90); Red Cell Distribution Width 13.4 % (11.8-14.3); White Blood Cell 8.7 10^3/uL (4.4-10.8)
[2021-12-15 05:08] LABS: Albumin 3.8 g/dL (3.4-5.0); Anion Gap 7 (5-15); Blood Urea Nitrogen 13 mg/dL (7-18); CRP High Sensitivity 0.08 mg/dL (< 0.3); Calcium 8.7 mg/dL (8.5-10.1); Carbon Dioxide 23 mmol/L (21-32); Chloride 110 mmol/L (98-107); Glucose 160 mg/dL (74-106); Lipase 50 U/L (73-393); Magnesium 2.1 mg/dL (1.6-2.6); Potassium 4.1 mmol/L (3.5-5.1); Sodium 140 mmol/L (136-145)
[2021-12-15 05:09] LABS: Partial Thromboplastin Time 29.8 sec (23.6-33.0)
[2021-12-15 05:14] VITALS: BP 123/68
[2021-12-15 05:14] LABS: Alanine Aminotransferase 28 U/L (16-61); Alkaline Phosphatase 59 U/L (45-117); Aspartate Aminotransferase 23 U/L (15-37); BUN/Creatinine Ratio 12.5; Bilirubin, Total 0.4 mg/dL (0.2-1.0); Cholesterol 178 mg/dL (< 200); Creatine Kinase IFCC 166 U/L (39-308); GFR African American 103 mL/min; GFR Non-African American 85 mL/min; HDL Cholesterol 35 mg/dL (40-59); LDL Cholesterol 128 mg/dL (< 100); Total Protein 6.9 g/dL (6.4-8.2); Triglycerides 117 mg/dL (< 150); Uric Acid 4.7 mg/dL (3.5-7.2)
[2021-12-15] MEDS: FUROSEMIDE 20 MG/2 ML VIAL IV SCH (06:00)
[2021-12-15 09:00] VITALS: BP 117/78
[2021-12-15] MEDS: ENOXAPARIN SOD 100 MG/1 ML SYRINGE SC SCH (09:15)
[2021-12-15] MEDS: POTASSIUM CHL 20 Meq TABLET PO SCH (09:18)
[2021-12-15] MEDS: DOXYCYCLINE 100MG/250ML 250 ML IV SCH (09:18)
[2021-12-15] MEDS ORDERED: CHOLECALCIFEROL (VITD3) 2,000 UNIT CAP/TAB PO SCH (10:00)
[2021-12-15] MEDS ORDERED: ASCORBIC ACID 1,000 MG TAB PO SCH (10:00)
[2021-12-15] MEDS ORDERED: DexAMETHasone SOD PHOS 10MG/1ML VIAL INJ IV SCH (10:00)
[2021-12-15] MEDS ORDERED: ZINC SULFATE 220mg CAP or TAB PO SCH (10:00)
[2021-12-15] MEDS ORDERED: ASPirin 81 mg TAB PO SCH (10:00)
[2021-12-15] MEDS ORDERED: PANTOPRAZOLE 40 MG/10 ML VIAL INJ IV SCH (10:00)
[2021-12-15 10:01] LABS: Alcohol, Urine < 3.0 mg/dL (0-10); Amphetamine Screen, Urine NEGATIVE (NEGATIVE); Barbiturate Scree,Urine NEGATIVE (NEGATIVE); Benzodiazephine Screen, Urine NEGATIVE (NEGATIVE); Cannabinoid Screen, Urine NEGATIVE (NEGATIVE); Cocaine Screen, Urine NEGATIVE (NEGATIVE); Opiate Scree,Urine NEGATIVE (NEGATIVE); Phencyclidine Screen, Urine NEGATIVE (NEGATIVE)
[2021-12-15] MEDS ORDERED: AZITTAB2 PO (10:07)
[2021-12-15] MEDS ORDERED: CHOL20009 PO (10:07)
[2021-12-15] MEDS: BUDESONIDE (INHALATION) 0.5 MG/2 ML NEB NEB SCH (10:09)
[2021-12-15] MEDS: ALBUTEROL SULF 2.5 MG/0.5ML(0.5%) NEB SOLN NEB PRN (10:09)
[2021-12-15 13:00] VITALS: BP 136/79
[2021-12-15 13:08] VITALS: BP 136/79
== END 2021-12-15 13:47 | disposition home or self-care (01) | DRG 196 ==
LOC: EEVIPCON 07:26 → ER 07:26 → TELE 13:17 → TELE-CENTR 15:45
PROVIDERS: ADMIT Hospitalist; ATTEND Internal Medicine
DX: J84.9 Interstitial pulmonary disease, unspecified (principal); J96.01 Acute respiratory failure with hypoxia; M06.9 Rheumatoid arthritis, unspecified; J45.909 Unspecified asthma, uncomplicated; Z20.822 Contact with and (suspected) exposure to COVID-19; F41.9 Anxiety disorder, unspecified; M19.90 Unspecified osteoarthritis, unspecified site; Z90.49 Acquired absence of other specified parts of digestive tract; Z86.16 Personal history of COVID-19
CPT/HCPCS: 36415; 36600; 71045; 71275; 80053; 80061; 80307; 81001; 82306; 82550; 82728; 82805; 82962; 83036; 83605; 83615; 83690; 83735; 83880; 84100; 84439; 84443; 84484; 84550; 85025; 85379; 85610; 85652; 85730; 86141; 87040; 87070; 87086; 87205; 93005; 93306; 93925; 93970; 94640; 96361; 96375; C9113; G0378; J1100; J1885; J3480; J3490

== ENCOUNTER → 2021-12-16 | Outpatient (CLI) | payer BC ==
[~2021-12-16] MED LIST: AZITTAB2 PO; CHOL20009 PO
[2021-12-16 15:14] LABS: Basophils # (auto) 0 10 ^3/uL (0-0.2); Basophils % (auto) 0.4 % (0.0-2.0); Eosinophils # (auto) 0 10 ^3/uL (0-0.8); Eosinophils % (auto) 0.1 % (0.0-7.0); Hematocrit 38.9 % (41.0-53.0); Hemoglobin 13.8 g/dL (13.5-17.5); Lymphocytes # (auto) 3.9 10 ^3/uL (0.4-5.4); Lymphocytes % (auto) 45.3 % (10.0-50.0); Mean Corpuscular Hgb Conc. 35.5 g/dL (32.0-36.0); Mean Corpuscular Volume 84.6 fL (80.0-100.0); Monocytes # (auto) 0.7 10 ^3/uL (0-1.3); Monocytes % (auto) 7.8 % (0.0-12.0); Neutrophils % (auto) 46.4 % (37.0-80.0); Nucleated Red Blood Cells % 0.1 %; Red Cell Distribution Width 13.3 % (11.8-14.3); White Blood Cell 8.6 10^3/uL (4.4-10.8)
[2021-12-16 15:41] LABS: Calcium 8.6 mg/dL (8.5-10.1); Potassium 3.8 mmol/L (3.5-5.1)
[2021-12-16 15:44] LABS: BUN/Creatinine Ratio 14.7; Bilirubin, Total 0.5 mg/dL (0.2-1.0); CRP High Sensitivity 0.05 mg/dL (< 0.3); Total Protein 7.2 g/dL (6.4-8.2)
[2021-12-17 16:31] LABS: Folate (Folic Acid) 10.39 ng/mL (5.38-24)
== END | disposition home or self-care (01) ==
LOC: LAB 14:51
PROVIDERS: ATTEND Internal Medicine
DX: E78.2 Mixed hyperlipidemia (principal); M06.9 Rheumatoid arthritis, unspecified; V09.9XXA Pedestrian injured in unspecified transport accident, initial encounter
CPT/HCPCS: 36415; 80053; 82607; 82746; 85025; 86038; 86141; 86200; 86225; 86235; 86376; 86431

== ENCOUNTER 2022-05-02 23:39 | Inpatient (IN) | payer BC ==
[~2022-05-02] VITALS: Ht 170.2 cm; Wt 83.1 kg
[2022-05-03] VITALS (7 sets, daily range): BP systolic 105–130; BP diastolic 70–85
[2022-05-03] LABS: Basophils # (auto) 0.2 10 ^3/uL (0-0.2); Basophils % (auto) 2.3 % (0.0-2.0); Eosinophils # (auto) 0.1 10 ^3/uL (0-0.8); Hematocrit 43.6 % (41.0-53.0); Hemoglobin 14.5 g/dL (13.5-17.5); Lymphocytes # (auto) 2.6 10 ^3/uL (0.4-5.4); Lymphocytes % (auto) 29.5 % (10.0-50.0); Mean Corpuscular Hemoglobin 28.2 pg (28.0-32.0); Mean Corpuscular Hgb Conc. 33.3 g/dL (32.0-36.0); Mean Corpuscular Volume 84.8 fL (80.0-100.0); Monocytes # (auto) 0.6 10 ^3/uL (0-1.3); Monocytes % (auto) 6.7 % (0.0-12.0); Neutrophils # (auto) 5.3 10 ^3/uL (1.6-8.6); Neutrophils % (auto) 60.5 % (37.0-80.0); Nucleated Red Blood Cells % 0.1 %; Red Blood Cells 5.15 10^6/uL (4.5-5.90); Red Cell Distribution Width 13.2 % (11.8-14.3); White Blood Cell 8.7 10^3/uL (4.4-10.8)
[2022-05-03 00:19] LABS: Albumin 4.7 g/dL (3.4-5.0); BUN/Creatinine Ratio 17.6; Calcium 8.8 mg/dL (8.5-10.1); Potassium 3.5 mmol/L (3.5-5.1)
[2022-05-03 00:22] LABS: Bilirubin, Total 0.4 mg/dL (0.2-1.0); Total Protein 7.8 g/dL (6.4-8.2)
[2022-05-03] MEDS ORDERED: NITROGLYCERIN 0.4 MG SL TAB SL PRN (01:45)
[2022-05-03] MEDS ORDERED: MORPHINE SULFATE INJ 2 MG/ml SYRG IV PRN ×2 (01:45)
[2022-05-03] MEDS ORDERED: ONDANSETRON HCL 4 MG/2 ML VIAL IV PRN (01:45)
[2022-05-03] MEDS ORDERED: HYDROcodone-ACET 5/325MG TAB PO PRN (01:45)
[2022-05-03] MEDS ORDERED: DOCUSATE SOD 100 MG CAP PO PRN (01:45)
[2022-05-03] MEDS ORDERED: ACETAMINOPHEN 325 MG TAB PO PRN (01:45)
[2022-05-03] MEDS: SODIUM CHLOR 0.9% PF (SALINE LOCK) 10ML VIAL/SYR IV SCH ×3 (07:27→22:14)
[2022-05-03] MEDS: IBUPROFEN 600 MG TAB PO PRN ×2 (07:55→18:40)
[2022-05-03 10:05] LABS: Alcohol, Urine < 3.0 mg/dL (0-10); Amphetamine Screen, Urine NEGATIVE (NEGATIVE); Barbiturate Scree,Urine NEGATIVE (NEGATIVE); Benzodiazephine Screen, Urine NEGATIVE (NEGATIVE); Cannabinoid Screen, Urine NEGATIVE (NEGATIVE); Cocaine Screen, Urine NEGATIVE (NEGATIVE); Opiate Scree,Urine NEGATIVE (NEGATIVE); Phencyclidine Screen, Urine NEGATIVE (NEGATIVE)
[2022-05-03] MEDS: ASPirin 81 mg TAB PO SCH (10:05)
[2022-05-03] MEDS: FAMOTIDINE (10MG/ML) 2ML VL IV SCH (10:05)
[2022-05-03 11:29] LABS: Basophils # (auto) 0 10 ^3/uL (0-0.2); Basophils % (auto) 0.5 % (0.0-2.0); Eosinophils # (auto) 0.1 10 ^3/uL (0-0.8); Hematocrit 39.2 % (41.0-53.0); Hemoglobin 13.2 g/dL (13.5-17.5); Mean Corpuscular Hemoglobin 29.2 pg (28.0-32.0); Mean Corpuscular Hgb Conc. 33.6 g/dL (32.0-36.0); Mean Corpuscular Volume 86.9 fL (80.0-100.0); Monocytes # (auto) 0.3 10 ^3/uL (0-1.3); Monocytes % (auto) 6.1 % (0.0-12.0); Neutrophils # (auto) 3.1 10 ^3/uL (1.6-8.6); Neutrophils % (auto) 56.4 % (37.0-80.0); Nucleated Red Blood Cells % 0.1 %; Red Blood Cells 4.51 10^6/uL (4.5-5.90); Red Cell Distribution Width 13.1 % (11.8-14.3); White Blood Cell 5.4 10^3/uL (4.4-10.8)
[2022-05-03 11:44] LABS: Calcium 8.1 mg/dL (8.5-10.1); Potassium 3.7 mmol/L (3.5-5.1)
[2022-05-03 11:50] LABS: BUN/Creatinine Ratio 15.8; Bilirubin, Total 0.6 mg/dL (0.2-1.0); Total Protein 6.6 g/dL (6.4-8.2)
[2022-05-03] MEDS ORDERED: HYDR200T36 PO (13:50)
[2022-05-04 05:00] VITALS: BP 106/58
[2022-05-04 06:06] LABS: Basophils # (auto) 0 10 ^3/uL (0-0.2); Basophils % (auto) 0.5 % (0.0-2.0); Eosinophils # (auto) 0.1 10 ^3/uL (0-0.8); Eosinophils % (auto) 1.7 % (0.0-7.0); Hematocrit 40.2 % (41.0-53.0); Hemoglobin 13.4 g/dL (13.5-17.5); Lymphocytes # (auto) 2.6 10 ^3/uL (0.4-5.4); Lymphocytes % (auto) 42.3 % (10.0-50.0); Mean Corpuscular Hemoglobin 28.9 pg (28.0-32.0); Mean Corpuscular Hgb Conc. 33.4 g/dL (32.0-36.0); Mean Corpuscular Volume 86.5 fL (80.0-100.0); Monocytes # (auto) 0.6 10 ^3/uL (0-1.3); Monocytes % (auto) 9.1 % (0.0-12.0); Neutrophils # (auto) 2.9 10 ^3/uL (1.6-8.6); Neutrophils % (auto) 46.4 % (37.0-80.0); Red Blood Cells 4.65 10^6/uL (4.5-5.90); Red Cell Distribution Width 13.2 % (11.8-14.3); White Blood Cell 6.2 10^3/uL (4.4-10.8)
[2022-05-04] MEDS: SODIUM CHLOR 0.9% PF (SALINE LOCK) 10ML VIAL/SYR IV SCH ×2 (06:52→14:20)
[2022-05-04 07:51] LABS: BUN/Creatinine Ratio 15.5
[2022-05-04 07:52] LABS: Albumin 3.8 g/dL (3.4-5.0); Bilirubin, Total 0.4 mg/dL (0.2-1.0); Calcium 8.2 mg/dL (8.5-10.1); Total Protein 6.6 g/dL (6.4-8.2)
[2022-05-04 08:00] VITALS: BP 113/67
[2022-05-04 08:34] LABS: Potassium 4.4 mmol/L (3.5-5.1)
[2022-05-04 09:00] VITALS: BP 113/67
[2022-05-04] MEDS: ASPirin 81 mg TAB PO SCH (09:49)
[2022-05-04] MEDS: FAMOTIDINE (10MG/ML) 2ML VL IV SCH (09:50)
[2022-05-04] MEDS ORDERED: hydrOXYchloroQUINE SULFATE 200 MG TAB PO SCH (10:00)
[2022-05-04] MEDS ORDERED: CHOLECALCIFEROL (VITD3) 2,000 UNIT CAP/TAB PO SCH (10:00)
[2022-05-04 13:00] VITALS: BP 119/78
[2022-05-04 15:58] VITALS: BP 109/79
[2022-05-04 17:00] VITALS: BP 109/79
== END 2022-05-04 16:28 | disposition home or self-care (01) | DRG 312 ==
LOC: ER 23:39 → EEVIPCON 23:39 → TELE-WESTW 05-03 01:36
PROVIDERS: ADMIT Nurse Practitioner Family; ATTEND Internal Medicine
DX: R55 Syncope and collapse (principal); N17.9 Acute kidney failure, unspecified; J45.909 Unspecified asthma, uncomplicated; F41.9 Anxiety disorder, unspecified; M06.9 Rheumatoid arthritis, unspecified; G40.909 Epilepsy, unspecified, not intractable, without status epilepticus; Z20.822 Contact with and (suspected) exposure to COVID-19; T37.8X5A Adverse effect of other specified systemic anti-infectives and antiparasitics, initial encounter; R07.89 Other chest pain; Z88.1 Allergy status to other antibiotic agents; Z90.49 Acquired absence of other specified parts of digestive tract; Y92.89 Other specified places as the place of occurrence of the external cause
CPT/HCPCS: 36415; 70551; 72100; 80053; 80307; 82962; 83615; 83880; 84484; 85025; 93005; 93886; 95819; 96374; G0378; J3490

== ENCOUNTER 2022-10-23 20:31 | Emergency (ER) | payer BC ==
[~2022-10-23] VITALS: Ht 170.2 cm; Wt 81.0 kg
[~2022-10-23 20:31] MED LIST changes: +HYDR200T36 PO
[2022-10-23 21:00] VITALS: BP 130/85
[2022-10-23 22:05] LABS: Basophils # (auto) 0.1 10 ^3/uL (0-0.2); Basophils % (auto) 0.8 % (0.0-2.0); Eosinophils # (auto) 0.1 10 ^3/uL (0-0.8); Eosinophils % (auto) 1.7 % (0.0-7.0); Hematocrit 42.7 % (41.0-53.0); Hemoglobin 14.6 g/dL (13.5-17.5); Lymphocytes # (auto) 2.5 10 ^3/uL (0.4-5.4); Lymphocytes % (auto) 36.9 % (10.0-50.0); Mean Corpuscular Hemoglobin 29.5 pg (28.0-32.0); Mean Corpuscular Hgb Conc. 34.3 g/dL (32.0-36.0); Mean Corpuscular Volume 85.9 fL (80.0-100.0); Monocytes # (auto) 0.4 10 ^3/uL (0-1.3); Monocytes % (auto) 5.9 % (0.0-12.0); Neutrophils # (auto) 3.8 10 ^3/uL (1.6-8.6); Neutrophils % (auto) 54.7 % (37.0-80.0); Nucleated Red Blood Cells % 0.1 %; Red Blood Cells 4.97 10^6/uL (4.5-5.90); Red Cell Distribution Width 12.8 % (11.8-14.3); White Blood Cell 6.9 10^3/uL (4.4-10.8)
[2022-10-23 22:22] LABS: Albumin 4.3 g/dL (3.4-5.0); Magnesium 2.2 mg/dL (1.6-2.6); Potassium 3.9 mmol/L (3.5-5.1)
[2022-10-23 22:24] LABS: BUN/Creatinine Ratio 18.8
[2022-10-23 22:27] LABS: Bilirubin, Total 0.6 mg/dL (0.2-1.0); Total Protein 7.2 g/dL (6.4-8.2)
== END 2022-10-24 01:19 | disposition left against medical advice (07) ==
LOC: ER 20:31 → EEVIPCON 20:31 → ER 21:52
DX: R55 Syncope and collapse (principal); R42 Dizziness and giddiness; Z53.21 Procedure and treatment not carried out due to patient leaving prior to being seen by health care provider
CPT/HCPCS: 36415; 80053; 83735; 84484; 85025; 93005

== ENCOUNTER 2022-10-30 16:32 | Emergency (ER) | payer BC ==
[~2022-10-30] VITALS: Ht 170.2 cm; Wt 75.0 kg
[2022-10-30 17:00] LABS: Basophils # (auto) 0 10 ^3/uL (0-0.2); Basophils % (auto) 0.7 % (0.0-2.0); Eosinophils # (auto) 0.1 10 ^3/uL (0-0.8); Hematocrit 41.7 % (41.0-53.0); Hemoglobin 14.6 g/dL (13.5-17.5); Lymphocytes # (auto) 2.6 10 ^3/uL (0.4-5.4); Lymphocytes % (auto) 40.1 % (10.0-50.0); Mean Corpuscular Hemoglobin 30.1 pg (28.0-32.0); Mean Corpuscular Volume 86.1 fL (80.0-100.0); Monocytes # (auto) 0.5 10 ^3/uL (0-1.3); Monocytes % (auto) 8.3 % (0.0-12.0); Neutrophils # (auto) 3.2 10 ^3/uL (1.6-8.6); Neutrophils % (auto) 49.9 % (37.0-80.0); Nucleated Red Blood Cells % 0.2 %; Red Blood Cells 4.84 10^6/uL (4.5-5.90); Red Cell Distribution Width 13.1 % (11.8-14.3); White Blood Cell 6.4 10^3/uL (4.4-10.8)
[2022-10-30 17:12] LABS: Albumin 4.2 g/dL (3.4-5.0); BUN/Creatinine Ratio 10.8; Calcium 8.9 mg/dL (8.5-10.1); Magnesium 2.2 mg/dL (1.6-2.6); Potassium 3.7 mmol/L (3.5-5.1)
[2022-10-30 17:14] LABS: Bilirubin, Total 0.6 mg/dL (0.2-1.0); Total Protein 7.4 g/dL (6.4-8.2)
[2022-10-30] MEDS ORDERED: IOHEXOL 350 MG/ML 100ML IJ ONE (20:22)
[2022-10-30] MEDS ORDERED: SODIUM CHLORIDE 0.9% 1,000 ML IV ONE (20:45)
[2022-10-31] VITALS: BP 121/76
== END 2022-10-31 02:03 | disposition home or self-care (01) ==
LOC: ER 16:34
DX: R07.89 Other chest pain (principal); F41.9 Anxiety disorder, unspecified; Z88.6 Allergy status to analgesic agent; Z91.018 Allergy to other foods; Z79.899 Other long term (current) drug therapy; Z90.49 Acquired absence of other specified parts of digestive tract
CPT/HCPCS: 36415; 71275; 80053; 83735; 83880; 84484; 85025; 85379; 93005; 96360; 99285; J7030; Q9967

== ENCOUNTER 2022-11-25 07:54 | Day surgery (SDC) | payer BC ==
[2022-11-24 11:49] LABS: Basophils # (auto) 0 10 ^3/uL (0-0.2); Basophils % (auto) 0.6 % (0.0-2.0); Eosinophils # (auto) 0 10 ^3/uL (0-0.8); Eosinophils % (auto) 0.5 % (0.0-7.0); Hematocrit 42.2 % (41.0-53.0); Hemoglobin 14.6 g/dL (13.5-17.5); Lymphocytes % (auto) 28.9 % (10.0-50.0); Mean Corpuscular Hemoglobin 29.7 pg (28.0-32.0); Mean Corpuscular Hgb Conc. 34.6 g/dL (32.0-36.0); Mean Corpuscular Volume 85.9 fL (80.0-100.0); Monocytes # (auto) 0.6 10 ^3/uL (0-1.3); Monocytes % (auto) 9.2 % (0.0-12.0); Neutrophils # (auto) 4.1 10 ^3/uL (1.6-8.6); Neutrophils % (auto) 60.8 % (37.0-80.0); Nucleated Red Blood Cells % 0.3 %; Red Blood Cells 4.91 10^6/uL (4.5-5.90); Red Cell Distribution Width 12.8 % (11.8-14.3); White Blood Cell 6.8 10^3/uL (4.4-10.8)
[2022-11-24 12:34] LABS: INR 0.99 (0.9-1.15); Partial Thromboplastin Time 25.6 sec (24.6-33.4)
[2022-11-24 13:05] LABS: Albumin 3.9 g/dL (3.4-5.0); BUN/Creatinine Ratio 15.1; Calcium 9.1 mg/dL (8.5-10.1)
[2022-11-24 13:07] LABS: Bilirubin, Total 0.4 mg/dL (0.2-1.0); Total Protein 7.3 g/dL (6.4-8.2)
[~2022-11-25] VITALS: Ht 170.2 cm; Wt 74.8 kg
[2022-11-25] VITALS (8 sets, daily range): BP systolic 94–111; BP diastolic 56–81
[~2022-11-25 07:54] MED LIST changes: +ATOR20TA PO; -AZITTAB2 PO; -CHOL20009 PO; -HYDR200T36 PO
[2022-11-25] MEDS ORDERED: IODIXANOL 320MG/ML 100ML BTL IV ONE (10:30)
[2022-11-25] MEDS ORDERED: LIDOCAINE 2%HCL (LOCAL ANESTH.) INJ 10ml MDV ONE ×2 (10:30→10:46)
[2022-11-25] MEDS ORDERED: MIDAZOLAM HCL 2MG/2ML 2ml VIAL (1mg/ml) ONE ×2 (10:34→11:18)
[2022-11-25] MEDS ORDERED: SODIUM CHL 0.9% 0 ML ONE (10:34)
[2022-11-25] MEDS ORDERED: fentaNYL CITRATE 100 MCG/2 ML VL ONE ×2 (10:34→11:18)
[2022-11-25] MEDS ORDERED: VERAPAMIL 2.5MG/ML INJ 2ML VIAL IV ONE (10:34)
[2022-11-25] MEDS ORDERED: ANGIOMAX 250 MG VIAL IV ONE (10:34)
[2022-11-25] MEDS ORDERED: HEPARIN SODIUM (PORCINE) 5000 UNITS/ML 1ML VIAL ONE (10:34)
[2022-11-25] MEDS ORDERED: LIDOCAINE 2%HCL (LOCAL ANESTH.) INJ 20ML MDV ONE (10:45)
[2022-11-25] MEDS ORDERED: MORPHINE SULFATE INJ 2 MG/ml SYRG IV ONE (11:45)
== END 2022-11-25 13:54 | disposition home or self-care (01) ==
LOC: CATH 07:54
PROVIDERS: ATTEND Internal Medicine
DX: R07.89 Other chest pain (principal); F41.9 Anxiety disorder, unspecified; Z88.6 Allergy status to analgesic agent; Z91.018 Allergy to other foods; Z83.3 Family history of diabetes mellitus; Z80.0 Family history of malignant neoplasm of digestive organs; Z82.61 Family history of arthritis; Z20.822 Contact with and (suspected) exposure to COVID-19
CPT/HCPCS: 36415; 80053; 85025; 85610; 85730; 93458; C1769; C1887; C1894; C9803; J1644; J2001; J2250; J2270; J3010; Q9967; U0003; 99152; 99153

== ENCOUNTER 2024-07-27 18:22 | Emergency (ER) | payer BC ==
[~2024-07-27] VITALS: Ht 170.2 cm; Wt 79.4 kg
[2024-07-27] MEDS: MORPHINE SULFATE INJ 2 MG/ml SYRG IM ONE (18:45)
[2024-07-27] MEDS: MORPHINE SULFATE INJ 2 MG/ml SYRG ONE (18:46)
--- NOTE | 2024-07-27 21:16 | DVH ---
EXAM: CT MAXILLOFACIAL WITHOUT INDICATION: tooth pain EXAM DATE: 07/27/2024 08:31 PM COMPARISON: None TECHNIQUE: Multiple axial CT images of the maxilla and face were obtained using bone algorithm. Axial and coronal reformatting was done. Bone and soft tissue windows were reviewed. Radiation Dose Information: CT Dose: CTDI volume is 66.97 mGy. Dose-length product is 1514.3 mGy*cm Findings: There is no evidence of an acute fracture or traumatic subluxations. No evidence of lytic, blastic, or osseous destructive lesions. Partial opacification of the maxillary sinuses. The remaining paranasal sinuses, middle ear cavities, and mastoid air cells are normally aerated. The globes and orbits are within normal limits. The nasal septum, nasal cavity, nasopharynx, and oropharynx are grossly unremarkable. The thyroid gland is unremarkable. The lung apices demonstrate no acute abnormality. The paraspinal a nd neck soft tissues appear within normal limits. Impression: 1. No evidence of an acute fracture or dental abnormality. 2. Partial opacification of the bilateral maxillary sinuses may reflect acute sinusitis.
[2024-07-27 21:23] VITALS: TEMP 97.7; O2SAT 16
[2024-07-27] MEDS ORDERED: METH4PAK PO (21:40)
--- NOTE | 2024-07-27 21:40 | ED.PDOC ---
Eye-HPI HPI Comments This is a 38-year-old male presents to the ED chief complaint right upper dental pain x2 days. Patient states follow up with dental was prescribed Augmentin has been taking it for the past 2 days notes no improvement. Patient states sharp shooting pain right upper mouth into right lower jaw 10/10 on pain scale. Patient was sent over from urgent care for evaluation. Denies fevers, chills, nausea, or vomiting. Chief Complaint: Tooth Pain Time Seen by MD: 18:38 Primary Care Provider: Finesse Reviewed Notes: Medications, Allergies Allergies: Coded Allergies: Acetaminophen (Verified Allergy, Intermediate, 12/14/21) [place] Oil (Verified Allergy, Unknown, ALMONDS, 12/14/21) Home Meds Active Scripts Methylprednisolone (Medrol Dosepak) 4 Mg Yoel, 4 MG PO UD for 6 Days, #21 TAB UAD Prov:FRANCISCO BHATTI CLINICAL UNIT EDUCATOR 07/27/24 Reported Medications Atorvastatin Calcium (Lipitor) 20 Mg Tab, 20 MG PO HS, TAB 11/24/22 Information Source: Patient Mode of Arrival: Ambulatory Past Medical History PAST MEDICAL HISTORY: Anxiety, Arthritis Surgical History: Appendectomy, Cholecystectomy Family History Family History: Reviewed,noncontributory to illness, No family hx of Cancer, No family hx of DM Social History Smoker: Non-Smoker Alcohol: Rarely Drugs: Denies Drug Use Lives In: Home Constitutional: denies: chills, diaphoresis, fatigue, fever, malaise, sweats, weakness, others EENTM: reports: others (Right upper jaw dental pain); denies: blurred vision, double vision, ear bleeding, ear discharge, ear drainage, ear pain, ear ringing, eye pain, eye redness, hearing loss, mouth pain, mouth swelling, nasal discharge, nose bleeding, nose congestion, nose pain, photophobia, tearing, throat pain, throat swelling, voice changes Respiratory: denies: cough, hemoptysis, orthopnea, SOB at rest, shortness of breath, SOB with excertion, stridor, wheezing, others Cardiovascular: denies: chest pain, dizzy spells, diaphoresis, Dyspnea on exertion, edema, irregular heart beat, left arm pain, lightheadedness, palpit ations, PND, syncope, others Gastrointestinal: denies: abdomen distended, abdominal pain, blood streaked b owels, constipated, diarrhea, dysphagia, difficulty swallowing, hematemesis, melena, nausea, poor appetite, poor fluid intake, rectal bleeding, rectal pain, vomiting, others Genitourinary: denies: burning, dysuria, flank pain, frequency, hematuria, incontinence, penile discharge, penile sore, pain, testicle pain, testicle swelling, urgency, others Neurological: denies: dizziness, fainting, headache, left sided numbness, left sided weakness, numbness, paresthesia, pre-existing deficit, right sided numbness, right sided weakness, seizure, speech problems, tingling, tremors, weakness, others Musculoskeletal: denies: back pain, gout, joint pain, joint swelling, muscle pain, muscle stiffness, neck pain, others Integumetry: denies: bruises, change in color, change in hair/nails, dryness, laceration, lesions, lumps, rash, wounds, others Allergic/Immunocompromised: denies: Difficulty Healing, Frequent Infections, Hives, Itching, others Hematologic/Lymphatic: denies: anemia, blood clots, easy bleeding, easy bruisi ng, swollen glands, others Endocrine: denies: excessive hunger, excessive sweating, excessive thirst, exce ssive urination, flushing, intolerance to cold, intolerance to heat, unexplained weight gain, unexplained weight loss, others Psychiatric: denies: anxiety, bipolar disorder, depression, hopeless, panic disorder, schizophrenia, sleepless, suicidal, others Physical Exam General Appearance: No Apparent Distress, Normal HEENT: Normal ENT Inspection, Pharynx Normal, Sinuses (Moderate tenderness palpated over right maxillary sinus. Trace edema no noted erythema), TMs Normal Neck: Full Range of Motion, Non-Tender, Normal, Normal Inspection Respiratory: Lungs Clear, No Respiratory Distress, Normal Breath Sounds Cardiovascular: No Murmur, Normal Peripheral Pulses, Regular Rate/Rhythm Breast Exam: Deferred Gastrointestinal: Non Tender, Soft Genitalia: Deferred Pelvic: Deferred Rectal: Deferred Extremities: Normal range of motion Musculoskeletal : Apperance: Normal Neurologic: Alert, rippler II-XII nml as Tested, No Motor Deficits, Normal Affect, Normal Mood, No Sensory Deficits Cerebellar Function: Normal Reflexes: Normal Skin: Dry, Normal Color, Warm Lymphatic: No Adenopathy Was a procedure done? Was a procedure done?: No EENT DIFF Eye: N/A Ear: N/A Nose: Other (Sinusitis), N/A X-Ray, Labs, Meds, VS Vital Signs Date Time Temp Pulse Resp B/P (MAP) Pulse Ox O2 Delivery O2 Flow Rate FiO2 07/27/24 21:51 90 16 123/84 07/27/24 21:45 Room Air 07/27/24 21:23 97.7 90 98 123/84 (97) 16 97.7 07/27/24 18:45 79 22 124/84 07/27/24 18:34 98.3 79 16 124/84 (97) 100 Current Medications Medications (Trade) Dose Ordered Sig/Raoul Route Start Time Stop Time Status Last Admin Morphine Sulfate 2 mg ONCE ONCE IM 07/27/24 18:45 07/27/24 18:46 DC 07/27/24 18:45 X-Ray, Labs, Meds, VS Comment Imaging: Maxillofacial CT shows acute sinusitis bilateral maxillary sinuses. Medications: Morphine 2 mg given IM patient notes improvement in pain. Advised patient to continue the Augmentin as prescribed we will start patient on a Medrol Dosepak acute right maxillary sinusitis.. Advised to continuous follow up with dental. Advised warm compresses to the maxillary sinus 15-20 minutes at a time every 3 hours as needed. Advised to follow up with his PCP in 2-3 days as necessary. Return to the ER for increasing pain, high fevers, or any concerning symptoms. Patient agrees with discharge plan of care. Time of 1ST Reevaluation: 21:40 Reevaluation 1ST: Improved Patient Education/Counseling: Diagnosis, Treatment, Prognosis, Need For Follow Up Family Education/Counseling: No Family Present Departure 1 Departure Time of Disposition: 21:40 Impression: Primary Impression: Sinusitis, acute maxillary Qualified Codes: J01.00 - Acute maxillary sinusitis, unspecified Disposition: HOME / SELF CARE / HOMELESS Condition: Stable e-Prescriptions Methylprednisolone (Medrol Dosepak) 4 Mg Yole 4 MG PO UD for 6 Days, #21 TAB UAD Prov: FRANCISCO BHATTI 07/27/24 Discharged With: Self Critical Care Note Critical Care Time?: No Stability Stability form required: No FRANCISCO BHATTI Jul 27, 2024 21:40
[2024-07-27 21:51] VITALS: BP 123/84; PULSE 90; RESP 16
== END 2024-07-27 21:50 | disposition home or self-care (01) ==
LOC: EEVIPCON 18:35 → ER 18:35
DX: J01.00 Acute maxillary sinusitis, unspecified (principal); K08.89 Other specified disorders of teeth and supporting structures; F41.9 Anxiety disorder, unspecified; M19.90 Unspecified osteoarthritis, unspecified site; Z90.49 Acquired absence of other specified parts of digestive tract; Z98.890 Other specified postprocedural states; Z88.8 Allergy status to other drugs, medicaments and biological substances; Z79.899 Other long term (current) drug therapy; Z91.09 Other allergy status, other than to drugs and biological substances
CPT/HCPCS: 70486; 96372; 99285; J2270

== ENCOUNTER 2024-10-23 01:50 | Inpatient (IN) | payer BC ==
[~2024-10-23] VITALS: Ht 170.2 cm; Wt 75.7 kg
[~2024-10-23 01:50] MED LIST changes: +METH4PAK PO
[2024-10-23 02:30] LABS: Basophils # (auto) 0 10 ^3/uL (0-0.2); Basophils % (auto) 0.4 % (0.0-2.0); Eosinophils # (auto) 0 10 ^3/uL (0-0.8); Eosinophils % (auto) 0.6 % (0.0-7.0); Hematocrit 41.2 % (41.0-53.0); Hemoglobin 14.1 g/dL (13.5-17.5); Lymphocytes # (auto) 2.6 10 ^3/uL (0.4-5.4); Lymphocytes % (auto) 34.8 % (10.0-50.0); Mean Corpuscular Hemoglobin 29.7 pg (28.0-32.0); Mean Corpuscular Hgb Conc. 34.2 g/dL (32.0-36.0); Mean Corpuscular Volume 86.9 fL (80.0-100.0); Monocytes # (auto) 0.5 10 ^3/uL (0-1.3); Monocytes % (auto) 6.3 % (0.0-12.0); Neutrophils # (auto) 4.3 10 ^3/uL (1.6-8.6); Neutrophils % (auto) 57.9 % (37.0-80.0); Nucleated Red Blood Cells % 0.1 %; Platelet Count (auto) 427 10^3/uL (140-450); Red Blood Cells 4.74 10^6/uL (4.5-5.90); Red Cell Distribution Width 13.5 % (11.8-14.3); White Blood Cell 7.5 10^3/uL (4.4-10.8)
[2024-10-23 02:40] VITALS: PULSE 109; RESP 17; O2SAT 99
[2024-10-23 02:46] LABS: INR 1.06 (0.9-1.15); Partial Thromboplastin Time 26.2 SEC (24.5-34.5); Prothrombin Time 11.2 sec (9.3-11.8)
[2024-10-23 02:57] LABS: Alanine Aminotransferase 25 U/L (7-40); Albumin 4.6 g/dL (3.2-4.8); Alkaline Phosphatase 70 U/L (46-116); Anion Gap 7 (5-15); Aspartate Aminotransferase 23 U/L (13-40); BUN/Creatinine Ratio 8.9 (10.0-20.0); Blood Urea Nitrogen 9 mg/dL (9-23); Carbon Dioxide 29 mmol/L (20-31); Chloride 104 mmol/L (98-107); Glucose 105 mg/dL (74-106); Magnesium 2.2 mg/dL (1.6-2.6); Sodium 140 mmol/L (136-145)
[2024-10-23 02:58] LABS: Bilirubin, Total 0.6 mg/dL (0.2-1.0); Total Protein 7.1 g/dL (5.7-8.2)
--- NOTE | 2024-10-23 03:11 | DVH ---
CT STROKE CTH INDICATION: LEFT SIDED NUMBNESS COMPARISON: HEAD WITHOUT CONTRAST on DOS: 05/03/22 TECHNIQUE: CT of the head without intravenous contrast. RADIATION DOSE: CTDIvol: 58.17 mGy, DLP: 932.51 mGy*cm FINDINGS: There is no evidence of acute intracranial hemorrhage, extra-axial collection, mass effect, midline s hift, herniation or hydrocephalus. The ventricles, sulci and cisterns are age appropriate. The rodriguez -white differentiation is intact. Polypoid mucosal thickening is noted within maxillary antra. Mast oid air cells are well-developed and aerated. The surrounding soft tissues and osseous structures ar e unremarkable. IMPRESSION: 1. No evidence of acute intracranial hemorrhage, mass effect or hydrocephalus.
[2024-10-23 03:19] LABS: Potassium 3.5 mmol/L (3.5-5.1)
--- NOTE | 2024-10-23 03:19 | DVH ---
CHEST RADIOGRAPH Indication: LEFT SIDED NUMBNESS Technique: Single frontal view of the chest was obtained COMPARISON: CHEST PORTABLE on DOS: 05/03/22, CXRP on DOS: 12/14/21 FINDINGS: Lines and Tubes: None Lungs: Clear Pleura: No effusion. No pneumothorax. Cardiomediastinal contours: Unremarkable Bones: Unremarkable IMPRESSION: 1. Clear lungs.
--- NOTE | 2024-10-23 04:12 | ED.PDOC ---
History of Present Illness HPI Comments 38 y/o M, with a Hx of anxiety and rheumatoid arthritis, presents with c/o left- sided blurry vision, numbness to left-arm and hand digits 4 and 5 and heaviness sensation to left leg, today. Patient endorses on sudden and unprovoked onset of symptoms, while at work, typing at a computer, with no prior history of in the past. He comments on last eye exam being normal and performed in July 2025. He reports no recent injuries, sick contact exposure, or other relevant or pertinent history. Patient denies having any weakness, tingling, fever, chills, dizziness, speech changes, facial droop, or other associated symptoms or modifiers at this time. Chief Complaint: Left Sided Weakness Time Seen by MD: 02:00 Primary Care Provider: thelma Ren Notes: Nurses Notes, Medications, Allergies Allergies: Coded Allergies: Acetaminophen (Verified Allergy, Intermediate, 12/14/21) [place] Oil (Verified Allergy, Unknown, ALMONDS, 12/14/21) Home Meds Active Scripts Methylprednisolone (Medrol Dosepak) 4 Mg Yoel, 4 MG PO UD for 6 Days, #21 TAB UAD Prov:FRANCISCO BHATTI DIRECTOR OF GROUP COUNSELING PROGRAM 07/27/24 Reported Medications Atorvastatin Calcium (Lipitor) 20 Mg Tab, 20 MG PO HS, TAB 11/24/22 Information Source: Patient Mode of Arrival: Ambulatory Severity: Moderate Timing: Hours Duration: Since onset Prehospital treatment: None Past Medical History PAST MEDICAL HISTORY: Anxiety, Arthritis (rheumatoid ) Surgical History: Appendectomy, Cholecystectomy Family History Family History: Reviewed,noncontributory to illness, No family hx of Cancer, No family hx of DM Social History Smoker: Non-Smoker Alcohol: Rarely Drugs: Denies Drug Use Lives In: Home EENTM: reports: blurred vision (left eye ) Neurological: reports: left sided numbness (to digits 4 and 5 on left hand and left arm ), others (left leg heaviness ) All Other Systems: Reviewed and Negative (negative unless otherwise stated a kim or in HPI) Physical Exam General Appearance: Moderate Distress, Normal HEENT: Normal ENT Inspection, Pharynx Normal, TMs Normal Neck: Full Range of Motion, Non-Tender, Normal, Normal Inspection Respiratory: Chest Non-Tender, Lungs Clear, No Accessory Muscle Use, No Respiratory Distress, Normal Breath Sounds Cardiovascular: No Edema, No JVD, No Murmur, No Gallop, Normal Peripheral Pu lses, Regular Rate/Rhythm Breast Exam: Deferred Gastrointestinal: No Organomegaly, Non Tender, No Pulsatile Mass, Normal Bowel Sounds, Soft Genitalia: Deferred Pelvic: Deferred Rectal: Deferred Extremities: No calf tenderness, Normal capillary refill, Normal inspection, Normal range of motion, Non-tender, No pedal edema Musculoskeletal : Apperance: Normal Neurologic: Alert, peoplesoft crm developer II-XII nml as Tested, No Motor Deficits, Normal Affect, Normal Mood, Sensory Deficit (left-side ) Cerebellar Function: Normal Reflexes: Normal Skin: Dry, Normal Color, Warm Lymphatic: No Adenopathy Was a procedure done? Was a procedure done?: No Differential Dx Considerations may include: Arizmendi's palsy, viral syndrome, electrolyte imbalance, dehydration, CVA, TIA X-Ray, Labs, Meds, VS Vital Signs Date Time Temp Pulse Resp B/P (MAP) Pulse Ox O2 Delivery O2 Flow Rate FiO2 10/23/24 03:00 98.0 89 12 114/76 (89) 96 98.0 10/23/24 03:00 96 10/23/24 02:40 109 17 99 Room Air* 0 21 10/23/24 02:36 98.1 109 16 120/84 (96) 99 98.1 10/23/24 01:56 98.8 100 19 141/85 (103) 99 Lab Test 10/23/24 03:10 10/23/24 02:16 10/23/24 01:55 Range/Units Troponin I High Sensitivity 3 L < 3 L </=54 ng/L White Blood Count 7.5 4.4-10.8 10^3/uL Red Blood Count 4.74 4.5-5.90 10^6/uL Hemoglobin 14.1 13.5-17.5 g/dL Hematocrit 41.2 41.0-53.0 % Mean Corpuscular Volume 86.9 80.0-100.0 fL Mean Corpuscular Hemoglobin 29.7 28.0-32.0 pg Mean Corpuscular Hemoglobin Concent 34.2 32.0-36.0 g/dL Red Cell Distribution Width 13.5 11.8-14.3 % Platelet Count 427 140-450 10^3/uL Mean Platelet Volume 6.7 L 6.9-10.8 fL Neutrophils (%) (Auto) 57.9 37.0-80.0 % Lymphocytes (%) (Auto) 34.8 10.0-50.0 % Monocytes (%) (Auto) 6.3 0.0-12.0 % Eosinophils (%) (Auto) 0.6 0.0-7.0 % Basophils (%) (Auto) 0.4 0.0-2.0 % Neutrophils # (Auto) 4.3 1.6-8.6 10 ^3/uL Lymphocytes # (Auto) 2.6 0.4-5.4 10 ^3/uL Monocytes # (Auto) 0.5 0-1.3 10 ^3/uL Eosinophils # (Auto) 0 0-0.8 10 ^3/uL Basophils # (Auto) 0 0-0.2 10 ^3/uL Nucleated Red Blood Cells 0.1 % Prothrombin Time 11.2 9.3-11.8 sec Prothrombin Time INR 1.06 0.9-1.15 Activated Partial Thromboplast Time 26.2 24.5-34.5 SEC Sodium Level 140 136-145 mmol/L Potassium Level 3.5 3.5-5.1 mmol/L Chloride Level 104 98-107 mmol/L Carbon Dioxide Level 29 20-31 mmol/L Anion Gap 7 5-15 Blood Urea Nitrogen 9 9-23 mg/dL Creatinine 1.01 0.700-1.30 mg/dL Glomerular Filtration Rate Calc 96 >90 mL/min BUN/Creatinine Ratio 8.9 L 10.0-20.0 Serum Glucose 105 74-106 mg/dL Calcium Level 10.0 8.7-10.4 mg/dL Magnesium Level 2.2 1.6-2.6 mg/dL Total Bilirubin 0.6 0.2-1.0 mg/dL Aspartate Amino Transferase (AST) 23 13-40 U/L Alanine Aminotransferase (ALT) 25 7-40 U/L Alkaline Phosphatase 70 46-116 U/L B-Type Natriuretic Peptide 0.89 0-100 pg/mL Total Protein 7.1 5.7-8.2 g/dL Albumin 4.6 3.2-4.8 g/dL POC Glucose 114 H 70-106 mg/dl [facility] [id number] [facility] [address] Ph: [phone] DIAGNOSTIC IMAGING Diagnostic Imaging Report : [id number] Signed PATIENT: AUBRIE DIAZ ACCT: [id number] UNIT: [id number] : 1985 LOC: ER ROOM / BED: / AGE / SEX: 38 / M ADM STATUS: REG ER SERVICE 2 ORDERING PHYSICIAN: RUSSELL MILLER MD PROCEDURE(s): CTH - STROKE CTH REASON: LEFT SIDED NUMBNESS ORDER NUMBER(s): [id number], ACCESSION NUMBER(s): [id number] CT STROKE CTH INDICATION: LEFT SIDED NUMBNESS COMPARISON: HEAD WITHOUT CONTRAST on DOS: 05/03/22 TECHNIQUE: CT of the head without intravenous contrast. RADIATION DOSE: CTDIvol: 58.17 mGy, DLP: 932.51 mGy*cm FINDINGS: There is no evidence of acute intracranial hemorrhage, extra-axial collection, mass effect, midline shift, herniation or hydrocephalus. The ventricles, sulci and cisterns are age appropriate. The rodriguez-white differentiation is intact. Polypoid mucosal thickening is noted within maxillary antra. Mastoid air cells are well-developed and aerated. The surrounding soft tissues and osseous structures are unremarkable. IMPRESSION: 1. No evidence of acute intracranial hemorrhage, mass effect or hydrocephalus. ATED BY: KEHINDE RÍOS MD DICTATED DATE/TIME: 10/23/24307 SIGNED BY: KEHINDE RÍOS MD SIGNED DATE/TIME: 10/23/24307 CC: [place] [address] Ph: [phone] DIAGNOSTIC IMAGING Diagnostic Imaging Report : [id number] Signed PATIENT: AUBRIE DIAZ ACCT: [id number] UNIT: [id number] : 1985 LOC: ER ROOM / BED: / AGE / SEX: 38 / M ADM STATUS: REG ER SERVICE 2 ORDERING PHYSICIAN: RUSSELL MILLER MD PROCEDURE(s): CXR1 - CHEST XRAY 1 VIEW REASON: LEFT SIDED NUMBNESS ORDER NUMBER(s): [id number], ACCESSION NUMBER(s): [id number] CHEST RADIOGRAPH Indication: LEFT SIDED NUMBNESS Technique: Single frontal view of the chest was obtained COMPARISON: CHEST PORTABLE on DOS: 05/03/22, CXRP on DOS: 12/14/21 FINDINGS: Lines and Tubes: None Lungs: Clear Pleura: No effusion. No pneumothorax. Cardiomediastinal contours: Unremarkable Bones: Unremarkable IMPRESSION: 1. Clear lungs. ATED BY: KEHINDE RÍOS MD DICTATED DATE/TIME: 10/23/24316 SIGNED BY: KEHINDE RÍOS MD SIGNED DATE/TIME: 10/23/24316 CC: First troponin is three. Second troponin is three. EKG shows no signs of ischemia. CBC and CMP P are normal Based on blurry vision and loss of sensation in upper extremity and heaviness in the lower extremity on the left we will admit the patient to the hospitalist for further evaluation and care. Dr. Villeda will be consulted. Time of 1ST Reevaluation: 02:30 Reevaluation 1ST: Unchanged Patient Education/Counseling: Diagnosis, Treatment Family Education/Counseling: No Family Present Departure 1 Departure Time of Disposition: 04:54 Impression: Primary Impression: TIA (transient ischemic attack) Disposition: 09 ADMITTED INPATIENT Admit to: Tele Condition: Guarded Critical Care Note Critical Care Time?: Yes (35 min-critical care time only) Stability Stability form required: No Heart Score Heart Score: Heart Score Response (Comments) Value History N/A 0 EKG N/A 0 Age N/A 0 Risk Factors N/A 0 Troponin N/A 0 Total 0 I personally scribed for RUSSELL MILLER MD ([email or web address]) on 10/23/24 at 04:12. Electronically submitted by Mike Marin [email or web address]). RUSSELL MILLER MD Oct 23, 2024 04:12
--- NOTE | 2024-10-23 06:14 | ECG ---
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
[2024-10-23 07:53] VITALS: PULSE 90; RESP 15; O2SAT 97
--- NOTE | 2024-10-23 08:26 | DVHHP2 ---
History of Present Illness Reason for Visit: Left sided weakness History of Present Illness Freeman Rey is a 38-year-old male with past medical history of rheumatoid arthritis who is not taking any medications. Patient came to the ER for sudden onset of blurry vision in his let eye and left sided weakness. Patient was working when symptoms began, after waiting a couple hours and symptoms not improving he decided to go to the ER. On assessment his left leg is weaker and has a drift. He also states that his left forearm down to his pinky and ring finger is still numb, and that his vision remains blurry. Patient recently underwent a cardiac workup that was found to be unremarkable. Rheumatologic: Rheumatoid arthritis Past Surgical History: Appendectomy, Cholecystectomy Family History: None Smoke: No ALCOHOL: none Drugs: None Lives: with Family Domestic Violence: Neg Review of Systems Constitutional: No: Fever, Chills, Sweats, Weakness, Malaise, Other Eyes: Vision change (blurry vision in left eye); No: Pain, Conjunctivae inflammation, Eyelid inflammation, Other, Redness ENT: No: Ear pain, Ear discharge, Nose pain, Nose discharge, Nose congestion, Mouth pain, Mouth swelling, Throat pain, Throat swelling, Other Respiratory: No: Cough, Dry, Shortness of breath, SOB with excertion, Wheezing, Hemoptysis, Pleuritic Pain, Sputum, Wheezing, Other Cardiovascular: No: Chest Pain, Palpitations, Orthopnea, Paroxysmal Noc. Dyspn ea, Edema, Lt Headedness, Other Gastrointestinal: No: Nausea, Vomiting, Abdominal Pain, Diarrhea, Constipation, Melena, Hematochezia, Other Genitourinary: No Dysuria, No Frequency, No Incontinence, No Hematuria, No Retention, No Other Musculoskeletal: No: other, neck pain, shoulder pain, arm pain, back pain, hand pain, leg pain, foot pain Skin: No: Rash, Lesions, Jaundice, Bruising, Other Neurological: Weakness (left side), Numbness (left arm and hand); No: Incoordination, Change in speech, Confusion, Seizures, Other Allergies: Coded Allergies: Acetaminophen (Verified Allergy, Intermediate, 12/14/21) [place] Oil (Verified Allergy, Unknown, ALMONDS, 12/14/21) Medications Current Medications Medications Dose Ordered Sig/Raoul Route Start Time Stop Time Status Last Admin Dose Admin Sodium Chloride 10 ml Q8HR IV 10/23/24 14:00 UNV Acetaminophen 325 mg Q4HP PRN PO 10/23/24 08:30 UNV Acetaminophen/ Hydrocodone Bitart 1 tab Q4HP PRN PO 10/23/24 08:30 UNV Ondansetron HCl 4 mg Q4HP PRN IV 10/23/24 08:30 UNV Docusate Sodium 100 mg BIDPRN PRN PO 10/23/24 08:30 UNV Nitroglycerin 0.4 mg Q5MINP PRN SL 10/23/24 08:30 UNV Morphine Sulfate 2 mg Q30M PRN IV 10/23/24 08:30 UNV Exam Vital Signs Vital Signs Date Time Temp Pulse Resp B/P (MAP) Pulse Ox O2 Delivery O2 Flow Rate FiO2 10/23/24 07:53 90 15 97 Room Air* 0 21 10/23/24 07:50 98.3 111/79 (90) 98.3 General Appearance: Alert, Oriented X3, Cooperative, mild distress HEENT: Atraumatic, PERRLA Respiratory: Clear to auscultation, Normal air movement Cardiovascular: Regular rate, Normal S1, Normal S2, No murmurs Abdominal: Normal bowel sounds, Soft, No tenderness Extremities: No clubbing, No cyanosis, No edema, Normal pulses Skin: No rashes, No breakdown, No significant lesion Neuro: Normal speech, Other (left leg drift) Psych/Mental Status: Mental status NL, Mood NL Labs/Xrays Labs Test 10/23/24 03:10 10/23/24 02:16 10/23/24 01:55 Range/Units Troponin I High Sensitivity 3 L </=54 ng/L White Blood Count 7.5 4.4-10.8 10^3/uL Red Blood Count 4.74 4.5-5.90 10^6/uL Hemoglobin 14.1 13.5-17.5 g/dL Hematocrit 41.2 41.0-53.0 % Mean Corpuscular Volume 86.9 80.0-100.0 fL Mean Corpuscular Hemoglobin 29.7 28.0-32.0 pg Mean Corpuscular Hemoglobin Concent 34.2 32.0-36.0 g/dL Red Cell Distribution Width 13.5 11.8-14.3 % Platelet Count 427 140-450 10^3/uL Mean Platelet Volume 6.7 L 6.9-10.8 fL Neutrophils (%) (Auto) 57.9 37.0-80.0 % Lymphocytes (%) (Auto) 34.8 10.0-50.0 % Monocytes (%) (Auto) 6.3 0.0-12.0 % Eosinophils (%) (Auto) 0.6 0.0-7.0 % Basophils (%) (Auto) 0.4 0.0-2.0 % Neutrophils # (Auto) 4.3 1.6-8.6 10 ^3/uL Lymphocytes # (Auto) 2.6 0.4-5.4 10 ^3/uL Monocytes # (Auto) 0.5 0-1.3 10 ^3/uL Eosinophils # (Auto) 0 0-0.8 10 ^3/uL Basophils # (Auto) 0 0-0.2 10 ^3/uL Nucleated Red Blood Cells 0.1 % Prothrombin Time 11.2 9.3-11.8 sec Prothrombin Time INR 1.06 0.9-1.15 Activated Partial Thromboplast Time 26.2 24.5-34.5 SEC Sodium Level 140 136-145 mmol/L Potassium Level 3.5 3.5-5.1 mmol/L Chloride Level 104 98-107 mmol/L Carbon Dioxide Level 29 20-31 mmol/L Anion Gap 7 5-15 Blood Urea Nitrogen 9 9-23 mg/dL Creatinine 1.01 0.700-1.30 mg/dL Glomerular Filtration Rate Calc 96 >90 mL/min BUN/Creatinine Ratio 8.9 L 10.0-20.0 Serum Glucose 105 74-106 mg/dL Calcium Level 10.0 8.7-10.4 mg/dL Magnesium Level 2.2 1.6-2.6 mg/dL Total Bilirubin 0.6 0.2-1.0 mg/dL Aspartate Amino Transferase (AST) 23 13-40 U/L Alanine Aminotransferase (ALT) 25 7-40 U/L Alkaline Phosphatase 70 46-116 U/L B-Type Natriuretic Peptide 0.89 0-100 pg/mL Total Protein 7.1 5.7-8.2 g/dL Albumin 4.6 3.2-4.8 g/dL POC Glucose 114 H 70-106 mg/dl CHEST RADIOGRAPH FINDINGS: Lines and Tubes: None Lungs: Clear Pleura: No effusion. No pneumothorax. Cardiomediastinal contours: Unremarkable Bones: Unremarkable IMPRESSION: 1. Clear lungs. CT STROKE CTH INDICATION: LEFT SIDED NUMBNESS FINDINGS: There is no evidence of acute intracranial hemorrhage, extra-axial collection, mass effect, midline shift, herniation or hydrocephalus. The ventricles, sulci and cisterns are age appropriate. The rodriguez-white differentiation is intact. Polypoid mucosal thickening is noted within maxillary antra. Mastoid air cells are well-developed and aerated. The surrounding soft tissues and osseous structures are unremarkable. IMPRESSION: 1. No evidence of acute intracranial hemorrhage, mass effect or hydrocephalus. Assessment/Plan Assessment/Plan Assessment: Possible Stroke, Rheumatoid arthritis, Plan: Admit to Tele, Neurology consult, MRI Brain, ASA and statin started, Plan discussed with: Patient My Orders Orders - RUTH ANN VIDAL RN ENDOSCOPY Procedure Category Date Status Time Admit ADMIT 10/23/24 Transmitted 08:18 Code Status CODE 10/23/24 Transmitted 08:18 Sodium Chloride Lock PHA 10/23/24 Logged (Saline Lock Ns) 14:00 Acetaminophen Tablet PHA 10/23/24 Logged (Tylenol Tablet) 08:30 Hydrocodone-Acet PHA 10/23/24 Logged 5/325mg Tab ([place] 08:30 Ondansetron Hcl PHA 10/23/24 Logged (Zofran) 08:30 Docusate Sodium PHA 10/23/24 Logged Capsule (Colace 08:30 Complete Blood Count LAB 10/24/24 Verified 04:00 Comprehensive LAB 10/24/24 Verified Metabolic Panel 04:00 Condition: Serious LARRY 10/23/24 In Process 08:18 Nitroglycerin PHA 10/23/24 Logged Sublingual (Ntrostat 08:30 Morphine Sulfate PHA 10/23/24 Logged Injection 08:30 Stat Ekg For Chest LARRY 10/23/24 In Process Pain 08:18 Notify Of Changes LARRY 10/23/24 In Process From Base 08:18 [employer] For LARRY 10/23/24 In Process 24 Hours 08:18 Emergency Dysrhythmia LARRY 10/23/24 In Process Protocol 08:18 Rhythm Strips Once LARRY 10/23/24 In Process Every Shift 08:18 Oxygen By Nasal RT 10/23/24 Transmitted Cannula 08:18 Brain Head Wo Contrast MRI 10/23/24 Logged 08:18 Regular Diet DIET 10/23/24 Transmitted Breakfast Date of Service: Oct 23, 2024 Billing Provider: RUTH ANN VIDAL Common Visit Codes: 89357-WLTULTZ INP/OBS CARE (MOD) RUTH ANN VIDAL Oct 23, 2024 08:26
[2024-10-23] MEDS ORDERED: ONDANSETRON HCL 4 MG/2 ML VIAL IV PRN (08:30)
[2024-10-23] MEDS ORDERED: NITROGLYCERIN 0.4 MG SL TAB SL PRN (08:30)
[2024-10-23] MEDS ORDERED: ACETAMINOPHEN 325 MG TAB PO PRN (08:30)
[2024-10-23] MEDS ORDERED: HYDROcodone-ACET 5/325MG TAB PO PRN (08:30)
[2024-10-23] MEDS ORDERED: DOCUSATE SOD 100 MG CAP PO PRN (08:30)
[2024-10-23] MEDS ORDERED: MORPHINE SULFATE INJ 2 MG/ml SYRG IV PRN (08:30)
[2024-10-23 09:52] VITALS: BP 110/74; PULSE 90; RESP 18; TEMP 98.6; O2SAT 100
--- NOTE | 2024-10-23 09:52 | DVHINCON2 ---
Date of service: Oct 23, [address] Holder Reason for Consultation Left-sided numbness History of Present Illness I was asked to see patient was status Mr. Rey is a 38 years old right-handed gentleman with a history of rheumatoid arthritis, anxiety, he was brought to the [facility] Emergency room on 10/23/2024 with a chief company of acute stroke syndrome On 10/22/2024, around 10:30 p.m. he developed progressive right monocular blurred vision when he was at work (confirmed by covering one eye each time), later he could not read with right eye covered, and his typing was affected. He did not have but has mild left eye pain this morning. But he was noticed vision improving this morning. He denies eye pain. He was not had similar problems previously Soon after the vision disturbance onset, he developed numbness in the whole left hand with the to ulnar fingers more effected, and the numbness spread towards the medial aspect of the left forearm Along with the numbness in the left upper extremity, he also developed weakness/heaviness in the left leg, but he was still able to walk Otherwise he denies recent chills, fever, nausea, vomiting coughing or other acute illness CBC, 10/23/2024: Unremarkable CMP, 10/23/2024: Unremarkable TG/HDL/LDL/HDL, 11/2021: 117/178/128/35 CT head, 10/23/2024: No evidence of acute intracranial hemorrhage, mass effect or hydrocephalus MRI head, 05/04/2022: 1. No suspicious intracranial findings. 2. Sinus disease. Past Medical History Rheumatoid arthritis, anxiety Past Surgical History Appendectomy, cholecystectomy Family History: Colon cancer G8 FATHER Diabetes mellitus G8 FATHER FH: rheumatoid arthritis G8 MOTHER FH: stomach cancer AUNT Family History Hypertension, diabetes, peripheral arterial disease, rheumatoid arthritis, cancer, no stroke, no heart attack Social History He is not a tobacco smoker, he has no history of alcohol or recreational substance abuse Allergies: Coded Allergies: Acetaminophen (Verified Allergy, Intermediate, 12/14/21) [place] Oil (Verified Allergy, Unknown, ALMONDS, 12/14/21) Home Meds Active Scripts Methylprednisolone (Medrol Dosepak) 4 Mg Yoel, 4 MG PO UD for 6 Days, #21 TAB UAD Prov:FRANCISCO BHATTI 07/27/24 Reported Medications Atorvastatin Calcium (Lipitor) 20 Mg Tab, 20 MG PO HS, TAB 11/24/22 Current Medications Current Medications Medications (Trade) Dose Ordered Sig/Raoul Route PRN Reason Start Time Stop Time Status Last Admin Sodium Chloride (Saline Lock Ns) 10 ml Q8HR IV 10/23/24 14:00 Acetaminophen (Tylenol Tablet) 325 mg Q4HP PRN PO MILD PAIN (1-3 PAIN SCALE) 10/23/24 08:30 Hold Acetaminophen/ Hydrocodone Bitart ([place] 5/325MG Tab) 1 tab Q4HP PRN PO MODERATE PAIN (4-6 PAIN SCALE) 10/23/24 08:30 Hold Ondansetron HCl (Zofran) 4 mg Q4HP PRN IV NAUSEA / VOMITING 10/23/24 08:30 Docusate Sodium (Colace Capsule) 100 mg BIDPRN PRN PO FOR CONSTIPATION 10/23/24 08:30 Nitroglycerin (Ntrostat Sublingual) 0.4 mg Q5MINP PRN SL FOR CHEST PAIN 10/23/24 08:30 Morphine Sulfate 2 mg Q30M PRN IV FOR CHEST PAIN 10/23/24 08:30 Review of Systems As above, the other systems are negative Vital Signs Vital Signs Date Time Temp Pulse Resp B/P (MAP) Pulse Ox O2 Delivery O2 Flow Rate FiO2 10/23/24 07:53 90 15 97 Room Air* 0 21 10/23/24 07:50 98.3 111/79 (90) 98.3 Physical Exam GENERAL EXAM: General: the patient is well developed and nourished. No acute distress. HEENT: Normocephalic, neck is supple, no carotid bruits. No mass RESPIRATORY: Normal respiratory effort with symmetrical lung expansion. Lungs clear to auscultation. CARDIOVASCULAR: Regular rate and rhythm with no murmurs. S1, S2. ABDOMEN: Soft, nontender, normal bowel sound NEUROLOGICAL: MENTAL STATUS: Awake and alert. Oriented to person, place, time and general circumstances. Able to give personal history SPEECH, LANGUAGE, HIGHER CORTICAL FUNCTION: no aphasia or dysathria. CRANIAL NERVES: #2: Intact visual sher to confrontation. Mild left monocular blurry vision (confirmed with one eye covered each time). The optic discs were sharp. #3,4,6: Pupils are equal, round and reactive. EOMs full and conjugate. No nystagmus. #5: Facial sensation intact in all three divisions bilaterally. Mandibular strength intact. #7: Facial muscles symmetrical and strength intact. #8: Hearing grossly normal to voice. #9,10: Uvula and soft palate rise in the midline. Swallow and voice are normal. #11: Trapezius and sternomastoid strength intact bilaterally. #12: Tongue midline. No fasciculations or atrophy. SENSATION: Sensation to touch and pinprick is normal. MOTOR: Normal tone in the upper and lower extremity. Normal muscle bulk. No fasciculations. No abnormal movements or posturing. Muscle strength of the major groups in the upper extremities is 5/5. Muscle strength of the major groups in the lower extremities is 5/5. REFLEXES: Deep tendon reflexes normal and symmetrical. No pathological reflexes. CEREBELLAR/COORDINATION: Finger to nose and heel to saab are normal bilaterally. GAIT/STATION: Unremarkable Labs/Diagnostic Data Labs Test 10/23/24 03:10 10/23/24 02:16 10/23/24 01:55 Range/Units Troponin I High Sensitivity 3 L </=54 ng/L White Blood Count 7.5 4.4-10.8 10^3/uL Red Blood Count 4.74 4.5-5.90 10^6/uL Hemoglobin 14.1 13.5-17.5 g/dL Hematocrit 41.2 41.0-53.0 % Mean Corpuscular Volume 86.9 80.0-100.0 fL Mean Corpuscular Hemoglobin 29.7 28.0-32.0 pg Mean Corpuscular Hemoglobin Concent 34.2 32.0-36.0 g/dL Red Cell Distribution Width 13.5 11.8-14.3 % Platelet Count 427 140-450 10^3/uL Mean Platelet Volume 6.7 L 6.9-10.8 fL Neutrophils (%) (Auto) 57.9 37.0-80.0 % Lymphocytes (%) (Auto) 34.8 10.0-50.0 % Monocytes (%) (Auto) 6.3 0.0-12.0 % Eosinophils (%) (Auto) 0.6 0.0-7.0 % Basophils (%) (Auto) 0.4 0.0-2.0 % Neutrophils # (Auto) 4.3 1.6-8.6 10 ^3/uL Lymphocytes # (Auto) 2.6 0.4-5.4 10 ^3/uL Monocytes # (Auto) 0.5 0-1.3 10 ^3/uL Eosinophils # (Auto) 0 0-0.8 10 ^3/uL Basophils # (Auto) 0 0-0.2 10 ^3/uL Nucleated Red Blood Cells 0.1 % Prothrombin Time 11.2 9.3-11.8 sec Prothrombin Time INR 1.06 0.9-1.15 Activated Partial Thromboplast Time 26.2 24.5-34.5 SEC Sodium Level 140 136-145 mmol/L Potassium Level 3.5 3.5-5.1 mmol/L Chloride Level 104 98-107 mmol/L Carbon Dioxide Level 29 20-31 mmol/L Anion Gap 7 5-15 Blood Urea Nitrogen 9 9-23 mg/dL Creatinine 1.01 0.700-1.30 mg/dL Glomerular Filtration Rate Calc 96 >90 mL/min BUN/Creatinine Ratio 8.9 L 10.0-20.0 Serum Glucose 105 74-106 mg/dL Calcium Level 10.0 8.7-10.4 mg/dL Magnesium Level 2.2 1.6-2.6 mg/dL Total Bilirubin 0.6 0.2-1.0 mg/dL Aspartate Amino Transferase (AST) 23 13-40 U/L Alanine Aminotransferase (ALT) 25 7-40 U/L Alkaline Phosphatase 70 46-116 U/L B-Type Natriuretic Peptide 0.89 0-100 pg/mL Total Protein 7.1 5.7-8.2 g/dL Albumin 4.6 3.2-4.8 g/dL POC Glucose 114 H 70-106 mg/dl Assessment Acute left monocular blurred vision Acute left upper extremity paresthesia Acute left leg weakness Rule out acute stroke History of anxiety Plan/Recommendation Monitoring Supportive treatment Telemetry UDS Lipitor profile MRI brain scan MRI orbital Aspirin 81 mg daily, Lipitor 40 mg daily for now. Okay to discontinue if stroke was not confirmed from a neurologic point of view More recommendation per clinical course I have discussed with his nurse and MRI center The case was discussed with Dr. Finley Time spent is more than 55 minutes Progress: Poor This medical document was created using an electronic medical record system with [employer] dictation system. Although this document has been carefully reviewed, there may still be some phonetic and typographical errors. These areas are purely typographical due to imperfections of the software programs, and do not reflect any compromise in the patient's medical care. Plan discussed with: Patient, Other ADRIENNE CLAYTON MD Oct 23, 2024 09:51
[2024-10-23 09:56] VITALS: BP 110/74; PULSE 90; RESP 18; TEMP 98.6; O2SAT 100
--- NOTE | 2024-10-23 11:15 | DVH ---
EXAM: MRI BRAIN HEAD WO CONTRAST HISTORY: Left sided weakness, R/O Stroke COMPARISON: BRAIN HEAD WO CONTRAST on DOS: 05/04/22 TECHNIQUE: MRI was performed utilizing multiple appropriate imaging planes and pulse sequences. FINDINGS: SUPRATENTORIAL REGION: No evidence for acute ischemia or intracranial hemorrhage. Preservation of no rmal white matter signal. POSTERIOR FOSSA: Unremarkable. BRAINSTEM: Unremarkable. SELLAR/SUPRASELLAR REGION: Unremarkable. VENTRICLES, CISTERNS, SULCI: Age-appropriate. ORBITS: Unremarkable. PARANASAL SINUSES: Large bilateral maxillary sinus mucous retention cysts are noted measuring up to 2.8 cm on the right side. MASTOID AIR CELLS: Unremarkable. VASCULATURE: Unremarkable. BONES/ SOFT TISSUES: Unremarkable. OTHER: None. IMPRESSION: 1. No acute intracranial process identified. 2. Bilateral maxillary sinus mucous retention cysts.
[2024-10-23 12:25] VITALS: BP 124/91; PULSE 89; RESP 18
--- NOTE | 2024-10-23 12:41 | DVHDS2 ---
Discharge Summary Date of Admission Oct 23, 2024 at 08:18 Date of Discharge: Oct 23, 2024 Labs/Diagnostic Data: Laboratory Results Test 10/23/24 03:10 10/23/24 02:16 10/23/24 01:55 Troponin I High Sensitivity 3 ng/L (</=54) White Blood Count 7.5 10^3/uL (4.4-10.8) Red Blood Count 4.74 10^6/uL (4.5-5.90) Hemoglobin 14.1 g/dL (13.5-17.5) Hematocrit 41.2 % (41.0-53.0) Mean Corpuscular Volume 86.9 fL (80.0-100.0) Mean Corpuscular Hemoglobin 29.7 pg (28.0-32.0) Mean Corpuscular Hemoglobin Concent 34.2 g/dL (32.0-36.0) Red Cell Distribution Width 13.5 % (11.8-14.3) Platelet Count 427 10^3/uL (140-450) Mean Platelet Volume 6.7 fL (6.9-10.8) Neutrophils (%) (Auto) 57.9 % (37.0-80.0) Lymphocytes (%) (Auto) 34.8 % (10.0-50.0) Monocytes (%) (Auto) 6.3 % (0.0-12.0) Eosinophils (%) (Auto) 0.6 % (0.0-7.0) Basophils (%) (Auto) 0.4 % (0.0-2.0) Neutrophils # (Auto) 4.3 10 ^3/uL (1.6-8.6) Lymphocytes # (Auto) 2.6 10 ^3/uL (0.4-5.4) Monocytes # (Auto) 0.5 10 ^3/uL (0-1.3) Eosinophils # (Auto) 0 10 ^3/uL (0-0.8) Basophils # (Auto) 0 10 ^3/uL (0-0.2) Nucleated Red Blood Cells 0.1 % Prothrombin Time 11.2 sec (9.3-11.8) Prothrombin Time INR 1.06 (0.9-1.15) Activated Partial Thromboplast Time 26.2 SEC (24.5-34.5) Sodium Level 140 mmol/L (136-145) Potassium Level 3.5 mmol/L (3.5-5.1) Chloride Level 104 mmol/L (98-107) Carbon Dioxide Level 29 mmol/L (20-31) Anion Gap 7 (5-15) Blood Urea Nitrogen 9 mg/dL (9-23) Creatinine 1.01 mg/dL (0.700-1.30) Glomerular Filtration Rate Calc 96 mL/min (>90) BUN/Creatinine Ratio 8.9 (10.0-20.0) Serum Glucose 105 mg/dL (74-106) Calcium Level 10.0 mg/dL (8.7-10.4) Magnesium Level 2.2 mg/dL (1.6-2.6) Total Bilirubin 0.6 mg/dL (0.2-1.0) Aspartate Amino Transferase (AST) 23 U/L (13-40) Alanine Aminotransferase (ALT) 25 U/L (7-40) Alkaline Phosphatase 70 U/L (46-116) B-Type Natriuretic Peptide 0.89 pg/mL (0-100) Total Protein 7.1 g/dL (5.7-8.2) Albumin 4.6 g/dL (3.2-4.8) POC Glucose 114 mg/dl (70-106) Other Laboratory Tests 10/23/24 02:16 Brief Hx & Hospital Course: see dictated note Condition at Discharge: Good Final Diagnosis/Problems List ?tia Discharge Disposition: Home Discharge Instruct/Medications Diet: Cardiac 2g Na,low cholest Activity: No Restrictions, As Tolerated Follow Up/Referral: fu with pcp in 1 wk Medications: resume home meds dc home if ok with dr Villeda Discharge Statement: "Patient was advised to return to the ER or call 911 if any headaches, dizziness, shortness of breath, chest pain, abdominal pain, bleeding, fevers, or worsening of medical condition. Patient was counseled about treatment plan, medications, possible side effects, patientverbalized understanding. All questions were answered to the best of my ability. This discharge took greater then 30 minutes in planning, reviewing documentation, counseling the patient, and discussing with other team members." ASSESSMENT ASSESSMENT Assessment ?tia Date of Service: Oct 23, 2024 Billing Provider: ARIELLE POLLARD MD Common Visit Codes: 64766-EIT/OBS DISCH DAY >30min ARIELLE POLLARD MD Oct 23, 2024 12:41
[2024-10-23] MEDS: ASPirin 81 mg TAB PO ONE (13:01)
[2024-10-23 13:04] LABS: LDL Cholesterol 93 mg/dL (< 100); Triglycerides 100 mg/dL (< 150)
[2024-10-23 13:05] LABS: Cholesterol 135 mg/dL (< 200)
[2024-10-23 13:06] LABS: HDL Cholesterol 38 mg/dL (40-59)
[2024-10-23] MEDS: SODIUM CHLOR 0.9% PF (SALINE LOCK) 10ML VIAL/SYR IV SCH (13:39)
[2024-10-23 15:15] VITALS: BP 124/80; PULSE 89; RESP 18; TEMP 98.6; O2SAT 98
--- NOTE | 2024-10-23 19:57 | DVHDS ---
DATE OF DISCHARGE: 10/23/2024 HISTORY OF PRESENT ILLNESS: The patient is a 38-year-old gentleman who was admitted with history of blurry vision in the left eye and left-sided numbness. He has previous history of rheumatoid arthritis. HOSPITAL COURSE: The patient was seen in Neurology consult by Dr. Villeda. Chest x-ray done was unremarkable. The patient had MRI of brain that has also been unremarkable. The patient will be discharged when cleared by Dr. Villeda to resume his home medications and follow up with his primary in 1 week. FINAL DIAGNOSES: Therefore, * Questionable transient ischemic attack, questionable anxiety. * History of rheumatoid arthritis. Time spent in discharge planning and review of plan with the patient and literacy consultant was 37 minutes. MD MELVI Almeida/MARIO/MAURI TID: [id number] RECEIPT: [id number]
[2024-10-23] MEDS ORDERED: ATORVASTATIN 20 MG TAB PO SCH (22:00)
[2024-10-24] MEDS ORDERED: ASPirin 81 mg TAB PO SCH (10:00)
== END 2024-10-23 15:25 | disposition home or self-care (01) | DRG 69 ==
LOC: EEVIPCON 01:50 → ER 01:50 → TELE 08:18
PROVIDERS: ADMIT Nurse Practitioner Family; ATTEND Internal Medicine
DX: G45.9 Transient cerebral ischemic attack, unspecified (principal); M06.9 Rheumatoid arthritis, unspecified; R20.2 Paresthesia of skin; F41.9 Anxiety disorder, unspecified; Z88.6 Allergy status to analgesic agent; Z90.49 Acquired absence of other specified parts of digestive tract; Z86.73 Personal history of transient ischemic attack (TIA), and cerebral infarction without residual deficits; Z80.0 Family history of malignant neoplasm of digestive organs; Z83.3 Family history of diabetes mellitus; Z82.49 Family history of ischemic heart disease and other diseases of the circulatory system; Z79.82 Long term (current) use of aspirin; Z79.899 Other long term (current) drug therapy
CPT/HCPCS: 36415; 70450; 70551; 71045; 80053; 80061; 82465; 82962; 83735; 83880; 84484; 85025; 85610; 85730; 93005; 96360; 99291; G0378

== ENCOUNTER 2025-01-03 17:16 | Inpatient (IN) | payer BC ==
[~2025-01-03] VITALS: Ht 170.2 cm; Wt 76.8 kg
--- NOTE | 2025-01-03 17:28 | ED.PDOC ---
GI ASSESSMENT HPI Comments HPI: 39Y M presents to ED with chief complaint diffuse abd pain x1hr with nausea and vomiting. Pt denies diarrhea. Pt's family is sick at home with similar signs and symptoms. Pt denies recent travel. No other symptoms or history reported. Vitals Temperature: 97.4F Respiratory rate: 18 SpO2: 98% on RA Heart rate: 120 Blood pressure: 152/58 Past Medical History: RA, diverticulitis Past Surgical History: Appendectomy, cholecystectomy Social History: Denies alcohol, tobacco, and illicit drug use. foster: HPI: Poor Historian. Nonbilious nonbloody, constant, nonradiating. REVIEW OF SYSTEMS: CONSTITUTIONAL: Denies acute: fever, diaphoresis, chills, generalized weakness. HEAD: Denies acute: headache, photophobia Eyes: Denies acute: Double vision, vision loss, eye pain, eye discharge. EARS: Denies acute: tinnitus, hearing loss, ear discharge, ear pain, THROAT: Denies acute: sore throat, swelling, difficulty swallowing , pain with swallowing, change in voice. NECK: Denies acute: neck pain, neck swelling, stiff neck. HEART: Denies acute : chest pain, palpitations, LUNGS: Denies acute: SOB, wheezing, cough, hemoptysis ABDOMEN: Denies acute: , diarrhea, melena , hematemesis, hematochezia SKIN: Denies acute: rash, redness, lesions, itchiness. EXTREMITIES: Denies acute: calf pain, numbness, tingling, weakness, denies pain in extremity. Denies acute: Low back pain. Neuro: Denies acute: focal neurological deficit, motor or sensory focal neurological deficit, tremors, seizure like activity, confusion, dizziness, change in mental status, loss of bowel or bladder function, cauda equina like symptoms. : Denies acute: dysuria, hematuria, flank pain, increase in urinary frequency. PSYCH: Denies acute: hallucination, suicidal ideation, homicidal ideation. PHYSICAL EXAM: General: -----[id number]---acute distress, awake and alert. Head: normocephalic, atraumatic. Neck: supple, trachea is midline, no swelling. Throat: Normal phonation. Eyes:, no erythema, no purulent discharge, no proptosis, no icterus. Heart: regular rate, regular rhythm, no significant murmur appreciated. Lungs: no apparent respiratory distress, Able to speak in full sentences. No wheezing, no rhonchi, no crackles. No stridors Clear to auscultation bilaterally. Abdomen: Generalized tender to palpation, non distended, soft, no guarding, no rebound, + bowel sounds. Neuro: Awake, Alert, oriented to name, self, situation, follows commands GCS=15. Speech is normal. Skin: no petechia, no purpura, no cyanosis, non-pale, not jaundice. Lower extremities: --no - Pitting edema no deformity, no focal swelling, no calf TTP. Makes eye contact. moves all four extremities. Face: no apparent facial droop. Time Seen by MD: 17:22 Primary Care Provider: thelma Ren Notes: Nurses Notes, Medications, Allergies Allergies: Coded Allergies: Acetaminophen (Verified Allergy, Intermediate, 12/14/21) [place] Oil (Verified Allergy, Unknown, ALMONDS, 12/14/21) Home Meds Active Scripts Methylprednisolone (Medrol Dosepak) 4 Mg Yoel, 4 MG PO UD for 6 Days, #21 TAB UAD Prov:FRANCISCO BHATTI BUSINESS AND FINANCIAL COUNSEL 07/27/24 Reported Medications Atorvastatin Calcium (Lipitor) 20 Mg Tab, 20 MG PO HS, TAB 11/24/22 Information Source: Patient Mode of Arrival: Ambulatory Timing: Hours Duration: Since onset Prehospital treatment: None Quality: Other Vomitus: Watery Stool: Normal Severity: Mild Recent: None Recent Hx of: None Pain Location: Diffuse Modifying Factors: Nothing Associated sign and symptoms: Nausea, Vomiting, Abdominal Pain Past Medical History PAST MEDICAL HISTORY: Anxiety, Arthritis Past Medical History (Other): Diverticulitis Surgical History: Appendectomy, Cholecystectomy Family History Family History: Reviewed,noncontributory to illness, No family hx of Cancer, No family hx of DM Social History Smoker: Non-Smoker Alcohol: Rarely Drugs: Denies Drug Use Lives In: Home Was a procedure done? Was a procedure done?: No GI differential Dx Differential Diagnosis: Other (DDX include but not limited to diverticulitis, colitis, gastroenteritis, acute abdomen, SBO, enteritis, constipation, volvulus, appendicitis, Gallbladder disease, choledocolithiasis, ascending cholangitis, pancreatitis, intraAbdominal mass/neoplasm, hepatitis, UTI, pylonephritis, kidney stone, aneurysm, dissection, Inflammatory bowel disease, gastroparesis, ischemic bowel.) X-Ray, Labs, Meds, VS Vital Signs Date Time Temp Pulse Resp B/P (MAP) Pulse Ox O2 Delivery O2 Flow Rate FiO2 01/03/25 22:16 115 20 106/49 01/03/25 21:51 99.8 122 20 107/74 (85) 100 99.8 01/03/25 20:18 97.5 112 22 128/68 (88) 100 97.5 01/03/25 20:00 114 01/03/25 19:40 111 20 98 Room Air* 0 21 01/03/25 18:31 116/74 01/03/25 18:18 105 24 116/74 (88) 100 01/03/25 17:26 97.4 120 18 152/58 (89) 98 97.4 Lab Test 01/03/25 17:30 Range/Units White Blood Count 18.0 H 4.4-10.8 10^3/uL Red Blood Count 5.44 4.5-5.90 10^6/uL Hemoglobin 15.8 13.5-17.5 g/dL Hematocrit 47.7 41.0-53.0 % Mean Corpuscular Volume 87.8 80.0-100.0 fL Mean Corpuscular Hemoglobin 29.1 28.0-32.0 pg Mean Corpuscular Hemoglobin Concent 33.1 32.0-36.0 g/dL Red Cell Distribution Width 13.8 11.8-14.3 % Platelet Count 376 140-450 10^3/uL Mean Platelet Volume 7.1 6.9-10.8 fL Neutrophils (%) (Auto) 88.3 H 37.0-80.0 % Lymphocytes (%) (Auto) 5.6 L 10.0-50.0 % Monocytes (%) (Auto) 5.4 0.0-12.0 % Eosinophils (%) (Auto) 0.6 0.0-7.0 % Basophils (%) (Auto) 0.1 0.0-2.0 % Neutrophils # (Auto) 15.9 H 1.6-8.6 10 ^3/uL Lymphocytes # (Auto) 1.0 0.4-5.4 10 ^3/uL Monocytes # (Auto) 1.0 0-1.3 10 ^3/uL Eosinophils # (Auto) 0.1 0-0.8 10 ^3/uL Basophils # (Auto) 0 0-0.2 10 ^3/uL Nucleated Red Blood Cells 0.1 % Sodium Level 141 136-145 mmol/L Potassium Level 3.8 3.5-5.1 mmol/L Chloride Level 106 98-107 mmol/L Carbon Dioxide Level 28 20-31 mmol/L Anion Gap 7 5-15 Blood Urea Nitrogen 10 9-23 mg/dL Creatinine 0.95 0.700-1.30 mg/dL Glomerular Filtration Rate Calc 103 >90 mL/min BUN/Creatinine Ratio 10.5 10.0-20.0 Serum Glucose 111 H 74-106 mg/dL Lactic Acid Level 1.6 0.4-2.0 mmol/L Calcium Level 10.0 8.7-10.4 mg/dL Total Bilirubin 0.6 0.2-1.0 mg/dL Aspartate Amino Transferase (AST) 67 H 13-40 U/L Alanine Aminotransferase (ALT) 76 H 7-40 U/L Alkaline Phosphatase 76 46-116 U/L Troponin I High Sensitivity 3 L </=54 ng/L Total Protein 8.0 5.7-8.2 g/dL Albumin 5.2 H 3.2-4.8 g/dL Lipase 38 12-53 U/L Current Medications Medications (Trade) Dose Ordered Sig/Raoul Route Start Time Stop Time Status Last Admin Sodium Chloride 1,000 ml @ 1,000 mls/hr Q1H ONCE IV 01/03/25 17:30 01/03/25 18:30 DC 01/03/25 18:31 Ondansetron HCl (Zofran) 8 mg ONCE ONCE IV 01/03/25 17:30 01/03/25 17:31 DC 01/03/25 18:30 Fentanyl Citrate 100 mcg ONCE ONCE IV 01/03/25 17:30 01/03/25 17:31 DC 01/03/25 18:31 Pantoprazole Sodium (Protonix Tablet) 40 mg ONCE ONCE PO 01/03/25 18:45 01/03/25 20:05 DC 01/03/25 20:21 Lidocaine HCl (Xylocaine 2% Viscous) 10 ml ONCE ONCE PO 01/03/25 18:45 01/03/25 20:05 DC 01/03/25 20:20 Sucralfate (Carafate Tab) 1 gm ONCE ONCE PO 01/03/25 18:45 01/03/25 20:05 DC 01/03/25 20:19 Sodium Chloride 2,000 ml @ 2,000 mls/hr ONCE ONCE IV 01/03/25 21:00 01/03/25 21:59 DC 01/03/25 21:20 Ciprofloxacin 200 ml @ 200 mls/hr ONCE ONCE IV 01/03/25 21:00 01/03/25 21:59 DC 01/03/25 21:20 Metronidazole 100 ml @ 100 mls/hr ONCE ONCE IV 01/03/25 21:00 01/03/25 21:59 DC 01/03/25 21:20 Ondansetron HCl (Zofran) 8 mg ONCE ONCE IV 01/03/25 22:15 01/03/25 22:16 DC 01/03/25 22:16 Morphine Sulfate 2 mg ONCE ONCE IV 01/03/25 22:15 01/03/25 22:16 DC 01/03/25 22:16 [place] [address] Ph: [phone] DIAGNOSTIC IMAGING Diagnostic Imaging Report : [id number] Signed PATIENT: AUBRIE FOSTER ACCT: [id number] UNIT: [id number] : 1985 LOC: ER ROOM / BED: / AGE / SEX: 39 / M ADM STATUS: REG ER SERVICE 1722 ORDERING PHYSICIAN: BRETT MAZARIEGOS DO PROCEDURE(s): ABPL - CT AB PEL WO CON-NO ORAL OR IV REASON: abd n/v ORDER NUMBER(s): [id number], ACCESSION NUMBER(s): [id number] Procedure: CT CT AB PEL WO CON-NO ORAL OR IV 01/03/2025 05:48 PM Indication: abd n/v Comparison Study: [facility] on DOS: 12/15/21 Technique: Axial images were obtained and reformatted in coronal and sagittal planes. All CT scans at this medical facility are performed using dose modulation techniques as appropriate to a performed exam including the following: Automated exposure control was utilized; adjustment of the MA and/or KV according to patient size; and use of iterative reconstruction technique. CT Dose: CTDI volume is 7.26 mGy. Dose-length product is 382.44 mGy*cm FINDINGS: Lower Chest: Unremarkable. Hepatobiliary: Gallbladder is surgically absent. Spleen: Unremarkable. Pancreas: Unremarkable. Adrenal Glands: Unremarkable. tract: The kidneys are normal in size bilaterally without hydronephrosis or nephrolithiasis. The urinary bladder is unremarkable. GI tract: The stomach is grossly normal in appearance. Nondistended fluid-filled small bowel loops are seen throughout the abdomen. No evidence of small bowel obstruction. Liquid stool is noted in the lumen of the ascending and transverse colon. Descending and sigmoid colon diverticulosis without evidence of diverticulitis. Suggestion of appendectomy. Lymphatics: No mesenteric, retroperitoneal or periportal lymphadenopathy. Vasculature: The abdominal aorta is normal in caliber. Pelvic Organs: Unremarkable Bones/soft tissues: No acute osseous abnormality. A small fat-containing umbilical hernia noted. Other: None. IMPRESSION: 1. Findings suggestive of gastroenteritis with diarrheal state. No evidence of colitis. 2. Sigmoid diverticulosis without diverticulitis. ATED BY: RACHANA BRIONES MD DICTATED DATE/TIME: 01/03/251837 SIGNED BY: RACHANA BRIONES MD SIGNED DATE/TIME: 01/03/251837 CC: Time of 1ST Reevaluation: 17:52 Reevaluation 1ST: Unchanged Time of 2ND Reevaluation: 22:08 Reevaluation 2ND: Improved Patient Education/Counseling: Diagnosis, Treatment Family Education/Counseling: No Family Present Comments Patient presented with the above HPI.---abdominal pain---workup was initiated. patient was found with the above mentioned diagnosis. the following medications were ordered: please refer to order lists of meds and tests obtained by myself Dr. Mazariegos. Patient ED course and VS have been stabilized. Patient has been reassessed in the ED and remained in a stable condition. Pertinent incidental findings were discussed with the patient and/or family. Patient/family voices understanding and is agreeable with plan. Patient has been observed in the ED adequate length of time to insure improvement/stability. Escalation of care considered: Consideration of escalation to observation or admission Patient continues to have nausea and vomiting. Patient continues to have abdominal pain. Patient will be admitted for further evaluation and for pain control. Patient med sepsis criteria. Sepsis protocol was initiated with a weight based fluid resuscitation. Patient was ADMITTED to the medicine team for further evaluation and treatment of their presentation. All the reports of any imaging studies that were ordered by myself were reviewed by myself. Departure 1 Departure Time of Disposition: 22:08 Impression: Primary Impression: Gastroenteritis Additional Impressions: Leukocytosis Abdominal pain Nausea and vomiting Elevated LFTs Disposition: ADMITTED INPATIENT Admit to: Tele Condition: Guarded Additional Instructions: [address] [address] Ph: [phone] DIAGNOSTIC IMAGING Diagnostic Imaging Report : [id number] Signed PATIENT: AUBRIE FOSTER ACCT: [id number] UNIT: [id number] : 1985 LOC: ER ROOM / BED: / AGE / SEX: 39 / M ADM STATUS: REG ER SERVICE 1722 ORDERING PHYSICIAN: BRETT MAZARIEGOS DO PROCEDURE(s): ABPL - CT AB PEL WO CON-NO ORAL OR IV REASON: abd n/v ORDER NUMBER(s): [id number], ACCESSION NUMBER(s): [id number] Procedure: CT CT AB PEL WO CON-NO ORAL OR IV 01/03/2025 05:48 PM Indication: abd n/v Comparison Study: [facility] on DOS: 12/15/21 Technique: Axial images were obtained and reformatted in coronal and sagittal planes. All CT scans at this medical facility are performed using dose modulation techniques as appropriate to a performed exam including the following: Automated exposure control was utilized; adjustment of the MA and/or KV according to patient size; and use of iterative reconstruction technique. CT Dose: CTDI volume is 7.26 mGy. Dose-length product is 382.44 mGy*cm FINDINGS: Lower Chest: Unremarkable. Hepatobiliary: Gallbladder is surgically absent. Spleen: Unremarkable. Pancreas: Unremarkable. Adrenal Glands: Unremarkable. tract: The kidneys are normal in size bilaterally without hydronephrosis or nephrolithiasis. The urinary bladder is unremarkable. GI tract: The stomach is grossly normal in appearance. Nondistended fluid-filled small bowel loops are seen throughout the abdomen. No evidence of small bowel obstruction. Liquid stool is noted in the lumen of the ascending and transverse colon. Descending and sigmoid colon diverticulosis without evidence of diverticulitis. Suggestion of appendectomy. Lymphatics: No mesenteric, retroperitoneal or periportal lymphadenopathy. Vasculature: The abdominal aorta is normal in caliber. Pelvic Organs: Unremarkable Bones/soft tissues: No acute osseous abnormality. A small fat-containing umbilical hernia noted. Other: None. IMPRESSION: 1. Findings suggestive of gastroenteritis with diarrheal state. No evidence of colitis. 2. Sigmoid diverticulosis without diverticulitis. ATED BY: RACHANA BRIONES MD DICTATED DATE/TIME: 01/03/251837 SIGNED BY: RACHANA BRIONES MD SIGNED DATE/TIME: 01/03/251837 CC: Discharged With: Self Critical Care Note Critical Care Time?: Yes (35 min-critical care time only) I personally scribed for BRETT MAZARIEGOS DO ([email or web address]) on 01/03/25 at 17:28. Electronically submitted by Tawnya Gregory ([email or web address]). I personally scribed for BRETT MAZARIEGOS DO ([email or web address]) on 01/03/25 at 17:44. Electronically submitted by Tawnya Gregory ([email or web address]). I personally scribed for BRETT MAZARIEGOS DO ([email or web address]) on 01/03/25 at 19:51. Elect ronically submitted by Nanci Ornelas ([email or web address]). BRETT MAZARIEGOS DO Jan 03, 2025 17:28
[2025-01-03 18:07] LABS: Basophils # (auto) 0 10 ^3/uL (0-0.2); Basophils % (auto) 0.1 % (0.0-2.0); Eosinophils # (auto) 0.1 10 ^3/uL (0-0.8); Eosinophils % (auto) 0.6 % (0.0-7.0); Hematocrit 47.7 % (41.0-53.0); Hemoglobin 15.8 g/dL (13.5-17.5); Lymphocytes % (auto) 5.6 % (10.0-50.0); Mean Corpuscular Hemoglobin 29.1 pg (28.0-32.0); Mean Corpuscular Hgb Conc. 33.1 g/dL (32.0-36.0); Mean Corpuscular Volume 87.8 fL (80.0-100.0); Monocytes % (auto) 5.4 % (0.0-12.0); Neutrophils # (auto) 15.9 10 ^3/uL (1.6-8.6); Neutrophils % (auto) 88.3 % (37.0-80.0); Nucleated Red Blood Cells % 0.1 %; Platelet Count (auto) 376 10^3/uL (140-450); Red Blood Cells 5.44 10^6/uL (4.5-5.90); Red Cell Distribution Width 13.8 % (11.8-14.3)
[2025-01-03 18:19] LABS: Alkaline Phosphatase 76 U/L (46-116); Anion Gap 7 (5-15); BUN/Creatinine Ratio 10.5 (10.0-20.0); Blood Urea Nitrogen 10 mg/dL (9-23); Carbon Dioxide 28 mmol/L (20-31); Chloride 106 mmol/L (98-107); Lipase 38 U/L (12-53); Potassium 3.8 mmol/L (3.5-5.1); Sodium 141 mmol/L (136-145)
[2025-01-03 18:20] LABS: Bilirubin, Total 0.6 mg/dL (0.2-1.0)
[2025-01-03 18:27] LABS: Glucose 111 mg/dL (74-106)
[2025-01-03 18:28] LABS: Alanine Aminotransferase 76 U/L (7-40); Albumin 5.2 g/dL (3.2-4.8); Aspartate Aminotransferase 67 U/L (13-40)
[2025-01-03] MEDS: ONDANSETRON HCL 4 MG/2 ML VIAL IV ONE ×2 (18:30→22:16)
[2025-01-03] MEDS: fentaNYL CITRATE 100 MCG/2 ML VL IV ONE (18:31)
[2025-01-03] MEDS: SODIUM CHLORIDE 0.9% 1,000 ML IV ONE ×2 (18:31→23:23)
--- NOTE | 2025-01-03 18:40 | DVH ---
Procedure: CT CT AB PEL WO CON-NO ORAL OR IV 01/03/2025 05:48 PM Indication: abd n/v Comparison Study: [facility] on DOS: 12/15/21 Technique: Axial images were obtained and reformatted in coronal and sagittal planes. All CT scans at this medical facility are performed using dose modulation techniques as appropriate to a performed e xam including the following: Automated exposure control was utilized; adjustment of the MA and/or KV according to patient size; and use of iterative reconstruction technique. CT Dose: CTDI volume is 7.2 6 mGy. Dose-length product is 382.44 mGy*cm FINDINGS: Lower Chest: Unremarkable. Hepatobiliary: Gallbladder is surgically absent. Spleen: Unremarkable. Pancreas: Unremarkable. Adrenal Glands: Unremarkable. tract: The kidneys are normal in size bilaterally without hydronephrosis or nephrolithiasis. The u rinary bladder is unremarkable. GI tract: The stomach is grossly normal in appearance. Nondistended fluid-filled small bowel loops ar e seen throughout the abdomen. No evidence of small bowel obstruction. Liquid stool is noted in the l umen of the ascending and transverse colon. Descending and sigmoid colon diverticulosis without evid ence of diverticulitis. Suggestion of appendectomy. Lymphatics: No mesenteric, retroperitoneal or periportal lymphadenopathy. Vasculature: The abdominal aorta is normal in caliber. Pelvic Organs: Unremarkable Bones/soft tissues: No acute osseous abnormality. A small fat-containing umbilical hernia noted. Other: None. IMPRESSION: 1. Findings suggestive of gastroenteritis with diarrheal state. No evidence of colitis. 2. Sigmoid diverticulosis without diverticulitis.
[2025-01-03 19:40] VITALS: PULSE 111; RESP 20; O2SAT 98
[2025-01-03] MEDS: SUCRALFATE 1 GM TAB PO ONE (20:19)
[2025-01-03] MEDS: LIDOCAINE VISCOUS 2% 15ML UD PO ONE (20:20)
[2025-01-03] MEDS: PANTOPRAZOLE 40 MG TAB PO ONE (20:21)
[2025-01-03] MEDS: SODIUM CHLORIDE 0.9% 2,000 ML IV ONE (21:20)
[2025-01-03] MEDS: CIPROFLOXACIN 400MG/200ML 200 ML IV ONE (21:20)
[2025-01-03] MEDS: metroNIDAZOLE 500MG/100ML 100 ML IV ONE (21:20)
[2025-01-03] MEDS: MORPHINE SULFATE INJ 2 MG/ml SYRG IV ONE (22:16)
[2025-01-03] MEDS ORDERED: ONDANSETRON HCL 4 MG/2 ML VIAL IV PRN (22:45)
[2025-01-03 23:37] LABS: Sodium 142 mmol/L (136-145)
[2025-01-03 23:38] LABS: Anion Gap 8 (5-15); Carbon Dioxide 24 mmol/L (20-31)
[2025-01-03 23:43] LABS: Calcium 8.4 mg/dL (8.7-10.4); Chloride 110 mmol/L (98-107); Glucose 131 mg/dL (74-106)
[2025-01-03 23:44] LABS: Magnesium 1.5 mg/dL (1.6-2.6)
--- NOTE | 2025-01-03 23:55 | DVHHPRES ---
History of Present Illness Resident Creating Document: JERICA HUGHES RESIDENT History of Present Illness 39-year-old male patient with past medical history of rheumatoid arthritis, diverticulosis, asthma, anxiety, TIA presented with complaints of abdominal pain associated with nausea and vomiting that started at around 1600 hours.. Patient mentioned that his family members all have similar symptoms. He was at work where he started having we will episodes of vomiting associated with nausea and diffuse abdominal pain. Patient was patient has got he was told he passed out and was transferred to ER after that by the coworkers. He mentioned associated dizziness and headache. He denied any complaints of chest pain, any extremity weakness, sensory or motor deficit. In the ER, on my initial evaluation, patient was having active vomiting and he vomited around 1 Lt. Patient was resuscitated with fluids but later he started having chest pain and diffuse abdominal pain. later in the morning, patient mentioned significant improvement in his symptoms. Past medical history Rheumatoid arthritis, diverticulosis Asthma Anxiety past surgical history Cholecystostomy Patient's history Denied smoking, alcohol, marijuana or any other drug intake Allergic history Acetaminophen, almond oil Review of Systems Review of Systems As described in the HPI Allergies: Coded Allergies: Acetaminophen (Verified Allergy, Intermediate, 12/14/21) [place] Oil (Verified Allergy, Unknown, ALMONDS, 12/14/21) Fentanyl (Verified Adverse Reaction, Unknown, 01/04/25) Medications Current Medications Medications Dose Ordered Sig/Raoul Route Start Time Stop Time Status Last Admin Dose Admin Metoclopramide HCl 5 mg Q6HPRN PRN IV 01/03/25 23:15 Exam Vital Signs Vital Signs Date Time Temp Pulse Resp B/P (MAP) Pulse Ox O2 Delivery O2 Flow Rate FiO2 01/03/25 22:57 113 01/03/25 22:46 19 106/74 01/03/25 21:51 99.8 100 99.8 01/03/25 19:40 Room Air* 0 21 Exam Examination General Appearance: Alert, Oriented X3, Cooperative, No acute distress HEENT: EOMI Respiratory: Clear to auscultation, Normal air movement Cardiovascular: Regular rate, Normal S1, Normal S2 Abdominal: Abdominal tenderness Extremities: No cyanosis, No edema, Normal pulses, No tenderness/swelling Skin: No rashes, No breakdown Neuro: Normal gait, Normal speech, Strength at 5/5 X4 ext, Normal tone, Sensation intact, Cranial nerves 3-12 NL, Reflexes 2+ Psych/Mental Status: Mental status NL, Mood NL Point of care ultrasound IVC collapsable, although less than 50% with size of 1.78 cm Point of care ultrasound done in the AM IVC collapsable, although less than 50% with size of 1.63 cm Labs/Xrays Labs Test 01/03/25 23:06 01/03/25 17:30 Range/Units Sodium Level 142 136-145 mmol/L Potassium Level 4.0 3.5-5.1 mmol/L Chloride Level 110 H 98-107 mmol/L Carbon Dioxide Level 24 20-31 mmol/L Anion Gap 8 5-15 Blood Urea Nitrogen 14 9-23 mg/dL Creatinine 0.99 0.700-1.30 mg/dL Glomerular Filtration Rate Calc 98 >90 mL/min Serum Glucose 131 H 74-106 mg/dL Calcium Level 8.4 L 8.7-10.4 mg/dL Magnesium Level 1.5 L 1.6-2.6 mg/dL White Blood Count 18.0 H 4.4-10.8 10^3/uL Red Blood Count 5.44 4.5-5.90 10^6/uL Hemoglobin 15.8 13.5-17.5 g/dL Hematocrit 47.7 41.0-53.0 % Mean Corpuscular Volume 87.8 80.0-100.0 fL Mean Corpuscular Hemoglobin 29.1 28.0-32.0 pg Mean Corpuscular Hemoglobin Concent 33.1 32.0-36.0 g/dL Red Cell Distribution Width 13.8 11.8-14.3 % Platelet Count 376 140-450 10^3/uL Mean Platelet Volume 7.1 6.9-10.8 fL Neutrophils (%) (Auto) 88.3 H 37.0-80.0 % Lymphocytes (%) (Auto) 5.6 L 10.0-50.0 % Monocytes (%) (Auto) 5.4 0.0-12.0 % Eosinophils (%) (Auto) 0.6 0.0-7.0 % Basophils (%) (Auto) 0.1 0.0-2.0 % Neutrophils # (Auto) 15.9 H 1.6-8.6 10 ^3/uL Lymphocytes # (Auto) 1.0 0.4-5.4 10 ^3/uL Monocytes # (Auto) 1.0 0-1.3 10 ^3/uL Eosinophils # (Auto) 0.1 0-0.8 10 ^3/uL Basophils # (Auto) 0 0-0.2 10 ^3/uL Nucleated Red Blood Cells 0.1 % Lactic Acid Level 1.6 0.4-2.0 mmol/L Total Bilirubin 0.6 0.2-1.0 mg/dL Aspartate Amino Transferase (AST) 67 H 13-40 U/L Alanine Aminotransferase (ALT) 76 H 7-40 U/L Alkaline Phosphatase 76 46-116 U/L Troponin I High Sensitivity 3 L </=54 ng/L Total Protein 8.0 5.7-8.2 g/dL Albumin 5.2 H 3.2-4.8 g/dL Lipase 38 12-53 U/L Assessment/Plan Assessment/Plan Assessment and Plan #Shock likely septic/hypovolumic -IV fluids 30cc/kg plus ongoing GI losses, may require more fluids -IV norepinephrine currently @ 8, target MAP 65 /SBP 90 #Sepsis due to gastroenteritis -IV fluids -IV antibiotics, VANC and ZOSYN -lactic acid -Blood culture -stool culture #?Sycnope -CT head -echo -ekg -trops #Chest pain, rule out ACS, resolved, likely due to panic attack -echo -ekg -trops #hypomagnesemia -corrected #Gastroenteritis -IV vanco plus IV Zosyn #RA -resume home meds once stable #sigmoid diverticulosis without diverticulitis. -seen on CT #Anxiety -avoid BZD since patient is in shock pt mentions that he will update the family himself Case discussion with dr pinzon Plan discussed with: Patient, Other My Orders Orders - JERICA HUGHES RESIDENT Procedure Category Date Status Time Admit ADMIT 01/03/25 Transmitted 22:43 Oxygen By Nasal RT 01/03/25 Transmitted Cannula 22:43 Stat Ekg For Chest [facility] 01/03/25 In Process Pain 22:43 Notify Of Changes [facility] 01/03/25 In Process From Base 22:43 Motor Builder Assembler For [facility] 01/03/25 In Process 24 Hours 22:43 Emergency Dysrhythmia [facility] 01/03/25 In Process Protocol 22:43 Rhythm Strips Once [facility] 01/03/25 In Process Every Shift 22:43 Electrocardigram EKG 01/03/25 Logged 22:44 Basic Metabolic Panel LAB 01/03/25 In Process 22:52 Magnesium LAB 01/03/25 In Process 22:52 Metoclopramide PHA 01/03/25 In Process Injection (Reglan 23:15 Date of Service: Jan 03, 2025 Billing Provider: HORTENSIA PINZON MD Common Visit Codes: [id number] INP/OBS CARE (HIGH) JERICA HUGHES RESIDENT Jan 03, 2025 23:55 HORTENSIA PINZON MD Jan 04, 2025 19:13
[2025-01-04] VITALS (43 sets, daily range): BP systolic 77–126; BP diastolic 23–74; PULSE 91–125; RESP 16–35; TEMP 98.8–102.3; O2SAT 93–100
[2025-01-04] MEDS: METOCLOPRAMIDE HCL 5MG/ml INJ 2ml VIAL IV PRN (00:27)
[2025-01-04] MEDS: SODIUM CHLORIDE 0.9% 2,000 ML IV ONE (00:59)
[2025-01-04 01:31] LABS: BUN/Creatinine Ratio 14.1 (10.0-20.0); Blood Urea Nitrogen 14 mg/dL (9-23)
[2025-01-04] MEDS: SODIUM CHLORIDE 0.9% 1,000 ML IV ONE (01:51)
[2025-01-04] MEDS: PANTOPRAZOLE 40 MG/10 ML VIAL INJ IV ONE (01:51)
[2025-01-04 02:01] LABS: Lactic Acid w/Reflex 2.8 mmol/L (0.4-2.0)
--- NOTE | 2025-01-04 02:04 | ECG ---
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
[2025-01-04 02:12] LABS: Urine Bacteria None Seen /hpf (None Seen)
[2025-01-04] MEDS ORDERED: VANCOMYCIN PER PHARMACY 0 MG IV SCH (02:15)
[2025-01-04 02:32] LABS: Amphetamine Screen, Urine Neg (NEGATIVE)
[2025-01-04 02:33] LABS: Opiate Scree,Urine Neg (NEGATIVE)
[2025-01-04 02:36] LABS: Barbiturate Scree,Urine Neg (NEGATIVE); Benzodiazephine Screen, Urine Neg (NEGATIVE); Cannabinoid Screen, Urine Neg (NEGATIVE); Cocaine Screen, Urine Neg (NEGATIVE); Phencyclidine Screen, Urine Neg (NEGATIVE)
[2025-01-04 02:44] LABS: Urine Blood Negative /uL (Negative); Urine Clarity Clear (Clear); Urine Color Light-Yellow (Yellow); Urine Mucus FEW (None Seen); Urine Protein, UAD Negative (Negative); Urine Specific Gravity 1.022 (1.001-1.035); Urine Squamous Epithelial Cell None Seen /hpf (<5); Urine Urobilinogen Normal (Negative); Urine WBC 1 /HPF (0-3); Urine pH 5.5 (5.0-9.0)
--- NOTE | 2025-01-04 03:00 | DVH ---
CHEST RADIOGRAPH Indication: sepsis Technique: Single frontal view of the chest was obtained Comparison: XY CHEST XRAY 1 VIEW on DOS: 10/23/24, CHEST PORTABLE on DOS: 05/03/22, CXRP on DOS: 12/14/21 IMPRESSION: Heart appears relatively normal in size. There has been interval development of interstitial opacitie s and patchy airspace opacity in the right mid lung. No sizable effusion or pneumothorax.
[2025-01-04] MEDS: LACTATED RINGER'S 1,000 ML IV SCH (03:15)
[2025-01-04] MEDS ORDERED: ACETAMINOPHEN 650 MG RECT SUPP PR PRN (03:15)
--- NOTE | 2025-01-04 03:17 | DVH ---
Indication: Abdominal pain Technique: Single frontal view of the abdomen t was obtained Comparison: None IMPRESSION: Bowel-gas pattern is nonobstructed. No evidence of pathologic calcification or air-fluid level.
[2025-01-04] MEDS: LACTATED RINGER'S 500 ML IV ONE (03:31)
[2025-01-04 03:49] LABS: Albumin 3.6 g/dL (3.2-4.8); Alkaline Phosphatase 56 U/L (46-116); Anion Gap 9 (5-15); Blood Urea Nitrogen 12 mg/dL (9-23); Carbon Dioxide 22 mmol/L (20-31); Glucose 89 mg/dL (74-106); Potassium 4.1 mmol/L (3.5-5.1); Sodium 143 mmol/L (136-145)
--- NOTE | 2025-01-04 04:08 | DVH ---
EXAM: CT HEAD WITHOUT CONTRAST INDICATION: SYNCOPE TECHNIQUE: CT of the head without intravenous contrast. Radiation Dose Information: CT Dose: CTDI volume is 25 mGy. Dose-length product is 250 mGy*cm The dose indicators for CT are the volume Computed Tomography (CT) Dose Index (CTDIvol) and the Dose Length Product (DLP), and are measured in units of mGy and mGy-cm, respectively. These indicators are not patient dose, but values generated from the CT scanner acquisition factors. The report includes radiation exposure data for exposures received during this examination. COMPARISON: CT STROKE CTH on DOS: 10/23/24, HEAD WITHOUT CONTRAST on DOS: 05/03/22 FINDINGS: There is no evidence of acute intracranial hemorrhage, extra-axial collection, mass effect, midline s hift, herniation or hydrocephalus. The ventricles, sulci and cisterns are age appropriate. The rodriguez-white differentiation is intact. Patchy periventricular and subcortical white matter hypoattenuation is nonspecific but may be related to small vessel ischemic disease. Diffuse sinus disease. The surrounding soft tissues and osseous structures are unremarkable. IMPRESSION: No acute intracranial abnormality.
[2025-01-04] MEDS: NOREPINEPHRINE 8 MG/250ML KIT 250 ML IV SCH (04:23)
[2025-01-04] MEDS: ONDANSETRON HCL 4 MG/2 ML VIAL IV PRN (04:42)
[2025-01-04 04:54] LABS: Basophils # (auto) 0 10 ^3/uL (0-0.2); Basophils % (auto) 0.3 % (0.0-2.0); Eosinophils # (auto) 0 10 ^3/uL (0-0.8); Eosinophils % (auto) 0.1 % (0.0-7.0); Hematocrit 38.6 % (41.0-53.0); Hemoglobin 12.7 g/dL (13.5-17.5); Lymphocytes # (auto) 0.4 10 ^3/uL (0.4-5.4); Lymphocytes % (auto) 3.3 % (10.0-50.0); Mean Corpuscular Hemoglobin 29.3 pg (28.0-32.0); Mean Corpuscular Hgb Conc. 32.9 g/dL (32.0-36.0); Mean Corpuscular Volume 89.3 fL (80.0-100.0); Monocytes # (auto) 0.3 10 ^3/uL (0-1.3); Monocytes % (auto) 2.5 % (0.0-12.0); Neutrophils # (auto) 11.8 10 ^3/uL (1.6-8.6); Neutrophils % (auto) 93.8 % (37.0-80.0); Platelet Count (auto) 252 10^3/uL (140-450); Red Blood Cells 4.32 10^6/uL (4.5-5.90); Red Cell Distribution Width 13.7 % (11.8-14.3); White Blood Cell 12.6 10^3/uL (4.4-10.8)
[2025-01-04] MEDS: VANCOMYCIN 1 GM/200 ML IV ONE (05:00)
[2025-01-04 05:05] LABS: Alanine Aminotransferase 87 U/L (7-40); Aspartate Aminotransferase 83 U/L (13-40); Chloride 112 mmol/L (98-107)
[2025-01-04 05:06] LABS: Calcium 7.8 mg/dL (8.7-10.4); Magnesium 1.4 mg/dL (1.6-2.6); Total Protein 5.6 g/dL (5.7-8.2)
[2025-01-04] MEDS: VANCOMYCIN 1GM/200ML PM 200 ML IV ONE ×2 (05:06→07:39)
[2025-01-04] MEDS: MAGNESIUM SULFATE 1GM/100ML 100 ML IV SCH (05:34)
[2025-01-04] MEDS: MORPHINE SULFATE INJ 2 MG/ml SYRG IV ONE (05:44)
[2025-01-04] MEDS: PIPERACILLIN-TAZO 4.5GM 100 ML IV ONE (06:30)
[2025-01-04] MEDS: IBUPROFEN 600 MG TAB PO ONE ×2 (08:15→20:05)
[2025-01-04] MEDS: SODIUM CHLORIDE 0.9% 250 ML IV ONE (08:15)
[2025-01-04 08:42] LABS: COVID19 ANTIGEN SOFIA FIA NEGATIVE (NEGATIVE); Rapid Influenza A Negative (Negative); Rapid Influenza B Negative (Negative)
[2025-01-04 09:36] LABS: INR 1.11 (0.9-1.15); Prothrombin Time 11.6 sec (9.3-11.8)
--- NOTE | 2025-01-04 10:15 | ECG ---
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
[2025-01-04] MEDS: PANTOPRAZOLE 40 MG/10 ML VIAL INJ IV SCH (10:31)
[2025-01-04] MEDS: PIPERACILLIN-TAZOB 3.375GM 100 ML IV SCH (12:41)
--- NOTE | 2025-01-04 14:51 | DVHPN2 ---
Progress Note Date Seen: Jan 04, 2025 Medical Necessity Reason Pt with a Central, PICC or Fol: No Subjective Patient reports: No new complaints Review of Systems: HEENT:Normal, CVS:Normal, RESPIRATORY:Normal, GI:Normal, :Normal, MSK:Normal, NEURO:Normal Objective vital signs Vital Sign Date Time Temp Pulse Resp B/P (MAP) Pulse Ox O2 Delivery O2 Flow Rate FiO2 01/04/25 14:00 82 17 117/68 (84) 94 01/04/25 13:00 98.4 98.4 01/04/25 07:35 Nasal Cannula* 2 28 Total Intake and Output 01/03/25 01/03/25 01/04/25 15:00 23:00 07:00 Intake Total 1300 ml 3020.9 ml Output Total 1000 ml 1350 ml Balance 300 ml 1670.9 ml medications Current Medications Medications Dose Ordered Sig/Raoul Route Start Time Stop Time Status Last Admin Dose Admin Norepinephrine Bitartrate 250 ml @ 3.75 mls/hr Q24H IV 01/04/25 01:15 01/04/25 04:23 3.75 MLS/HR Vancomycin HCl 0 ml @ 0 mls/hr UD IV 01/04/25 02:15 Piperacillin Sod/ Tazobactam Sod 100 ml @ 25 mls/hr Q6HR IV 01/04/25 12:00 01/04/25 12:41 25 MLS/HR Lactated Ringer's 1,000 ml @ 100 mls/hr Q10H IV 01/04/25 03:15 01/04/25 13:14 100 MLS/HR Ondansetron HCl 4 mg Q4HPRN PRN IV 01/04/25 03:15 01/04/25 04:42 4 MG Pantoprazole Sodium 40 mg DAILY IV 01/04/25 10:00 01/04/25 10:31 40 MG Vancomycin HCl 250 ml @ 200 mls/hr Q12H IV 01/04/25 17:00 Examination: GENERAL:Normal, HEENT:Normal, NECK:Normal, LUNGS:Normal, LUNGS:Abnormal (on oxygen), CVS:Normal, ABDOMEN:Normal, MSK:Normal, SKIN:Normal, NEURO:Normal, :Normal laboratory and microbiology Laboratory Tests 01/04/25 03:22 Test 01/04/25 03:22 Range/Units Serum Glucose 89 74-106 mg/dL Problem List/Assessment/Plan Problem List/Assessment/Plan #1 septic shock with acute gastroenteritis: ivf, iv levophed, iv zosyn, stool studies #2 h/o RA #3 ?pneumonia/aspiration: repeat xray #4 asthma Plan discussed with: Patient Critical Care Time (mins): 39 (critical care time 39 mins) Date of Service: Jan 04, 2025 Billing Provider: ARIELLE POLLARD MD Common Visit Codes: [id number] CARE 30-74 MIN ARIELLE POLLARD MD Jan 04, 2025 14:51
[2025-01-04] MEDS: LIDOCAINE 1% (LOCAL ANESTH.) PF 5ml SDV ID ONE (16:03)
[2025-01-04] MEDS ORDERED: VANCOMYCIN 1.25GM/250ML 250 ML IV SCH (17:00)
[2025-01-04] MEDS: SODIUM CHLOR 0.9% PF (SALINE LOCK) 10ML VIAL/SYR IV SCH (22:28)
[2025-01-05] VITALS (35 sets, daily range): BP systolic 88–119; BP diastolic 53–80; PULSE 68–100; RESP 10–21; TEMP 97.6–98.6; O2SAT 92–100
--- NOTE | 2025-01-05 05:59 | DVH ---
CHEST RADIOGRAPH Indication: PNEUMONIA Technique: Single frontal view of the chest was obtained Comparison: XY CHEST PORTABLE on DOS: 01/04/25, XY CHEST XRAY 1 VIEW on DOS: 10/23/24, CHEST PORTABLE on DOS: 05/03/22 FINDINGS: Lines and Tubes: Right PICC terminates in the superior vena cava. Lungs: Improved aeration in the bilateral lungs. Pleura: No effusion. No pneumothorax. Cardiomediastinal contours: Unremarkable Bones: No acute osseous abnormality. IMPRESSION: 1. Significantly improved aeration in the bilateral lungs.
[2025-01-05 06:16] LABS: Basophils # (auto) 0 10 ^3/uL (0-0.2); Basophils % (auto) 0.4 % (0.0-2.0); Eosinophils # (auto) 0.1 10 ^3/uL (0-0.8); Eosinophils % (auto) 3.4 % (0.0-7.0); Hematocrit 34.5 % (41.0-53.0); Hemoglobin 11.8 g/dL (13.5-17.5); Lymphocytes # (auto) 1.2 10 ^3/uL (0.4-5.4); Lymphocytes % (auto) 30.5 % (10.0-50.0); Mean Corpuscular Hemoglobin 29.7 pg (28.0-32.0); Mean Corpuscular Hgb Conc. 34.3 g/dL (32.0-36.0); Mean Corpuscular Volume 86.5 fL (80.0-100.0); Monocytes # (auto) 0.5 10 ^3/uL (0-1.3); Monocytes % (auto) 12.5 % (0.0-12.0); Neutrophils # (auto) 2.2 10 ^3/uL (1.6-8.6); Neutrophils % (auto) 53.2 % (37.0-80.0); Nucleated Red Blood Cells % 0.1 %; Platelet Count (auto) 214 10^3/uL (140-450); Red Blood Cells 3.99 10^6/uL (4.5-5.90); Red Cell Distribution Width 13.4 % (11.8-14.3); White Blood Cell 4.1 10^3/uL (4.4-10.8)
[2025-01-05 06:35] LABS: Alanine Aminotransferase 146 U/L (7-40); Albumin 3.3 g/dL (3.2-4.8); Alkaline Phosphatase 67 U/L (46-116); Anion Gap 6 (5-15); Aspartate Aminotransferase 84 U/L (13-40); BUN/Creatinine Ratio 7.5 (10.0-20.0); Blood Urea Nitrogen 5 mg/dL (9-23); Calcium 8.2 mg/dL (8.7-10.4); Carbon Dioxide 25 mmol/L (20-31); Chloride 111 mmol/L (98-107); Glucose 100 mg/dL (74-106); Potassium 3.8 mmol/L (3.5-5.1); Sodium 142 mmol/L (136-145); Total Protein 5.2 g/dL (5.7-8.2)
[2025-01-05 06:36] LABS: Bilirubin, Total 0.6 mg/dL (0.2-1.0)
[2025-01-05] MEDS ORDERED: AMOX500T86 PO (10:38)
--- NOTE | 2025-01-05 10:45 | DVHPN2 ---
Subjective Patient is subjectively states that his abdominal pain is improved. He reports that his nausea and vomiting has resolved. Tolerating oral intake. Reviewed: Care Plan, H&P, Labs, Medications Changes from previous H/P or p: No Changes General: Per HPI Objective Vitals Vital Signs Date Time Temp Pulse Resp B/P (MAP) Pulse Ox O2 Delivery O2 Flow Rate FiO2 01/05/25 10:00 84 16 101/67 (78) 98 01/05/25 09:34 Room Air* 0 21 01/05/25 08:00 98.3 98.3 Intake/Output Intake and Output 01/05/25 07:00 Intake Total 5220.75 ml Output Total 2650 ml Balance 2570.75 ml Intake Oral 2512 ml IV Total 2708.75 ml Output Urine Total 2650 ml # Voids 3 General Appearance: Alert, Oriented X3, Cooperative, mild distress HEENT: Atraumatic, PERRLA Cardiovascular: Normal S1, Normal S2 Skin: Dry, Intact Psych/Mental Status: Mental status NL, Mood NL Medications Current Medications Medications Dose Ordered Sig/Raoul Route Start Time Stop Time Status Last Admin Dose Admin Piperacillin Sod/ Tazobactam Sod 100 ml @ 25 mls/hr Q6HR IV 01/04/25 12:00 01/05/25 06:25 25 MLS/HR Lactated Ringer's 1,000 ml @ 100 mls/hr Q10H IV 01/04/25 03:15 01/05/25 10:28 100 MLS/HR Ondansetron HCl 4 mg Q4HPRN PRN IV 01/04/25 03:15 01/04/25 04:42 4 MG Pantoprazole Sodium 40 mg DAILY IV 01/04/25 10:00 01/05/25 08:19 40 MG Sodium Chloride 10 ml QSHIFT@10,22 IV 01/04/25 22:00 01/05/25 08:19 10 ML Ibuprofen 400 mg Q8HP PRN PO 01/05/25 10:45 UNV Laboratory Results Laboratory Tests 01/05/25 05:49 Chemistry Test 01/05/25 05:49 Albumin 3.3 g/dL (3.2-4.8) Calcium Level 8.2 mg/dL (8.7-10.4) L Magnesium Level 2.0 mg/dL (1.6-2.6) Total Protein 5.2 g/dL (5.7-8.2) L LFT Test 01/05/25 05:49 Alanine Aminotransferase (ALT) 146 U/L (7-40) H Alkaline Phosphatase 67 U/L (46-116) Aspartate Amino Transferase (AST) 84 U/L (13-40) H Total Bilirubin 0.6 mg/dL (0.2-1.0) Urinalysis Test 01/04/25 01:58 Urine Color Light-yellow (Yellow) Urine Clarity Clear (Clear) Urine pH 5.5 (5.0-9.0) Urine Specific [place] 1.022 (1.001-1.035) Urine Protein Negative (Negative) Urine Ketones Negative (Negative) Urine Blood Negative /uL (Negative) Urine Nitrite Negative (Negative) Urine Bilirubin Negative (Negative) Urine Urobilinogen Normal mg/dL (Negative) Urine Leukocyte Esterase Negative /uL (Negative) Urine RBC None seen /hpf (0 - 3) Urine Microscopic WBC 1 /HPF (0-3) Urine Squamous Epithelial Cells None seen /hpf (<5) Urine Bacteria None seen /hpf (None Seen) Urine Mucus Few (None Seen) Urine Glucose Normal mg/dL (Normal) Microbiology Microbiology Date/Time Source Procedure Growth Status 01/03/25 17:30 Blood Blood Culture - Preliminary NO GROWTH AFTER 24 HOURS OF INCUBATION. Resulted Labs and/or images reviewed: Labs reviewed by me, Image(s) reviewed by me Assessment/Plan Assessment/Plan Impression: -septic shock -acute gastroenteritis -rheumatoid arthritis Plan: -continue IV hydration -patient has been weaned off of norepinephrine. -continue antibiotic therapy with Zosyn -PPI -antiemetic -pain management -transfer to telemetry floor -re-evaluate the cefepime for possible discharge. Total time spent with patient discussing and formulating plan of care: 35 minutes. This medical document was created using an electronic medical record system with [employer] dictation system. Although this document has been carefully reviewed, there may still be some phonetic and typographical errors. These areas are purely typographical due to imperfections of the software programs, and do not reflect any compromise in the patient's medical care. Plan discussed with: Patient, Other (RN) My Orders Orders - KENDAL ROBLERO NP Procedure Category Date Status Time Transfer Orders XFER 01/05/25 Transmitted 10:32 Full Liq Diet DIET 4/18/25 Transmitted Lunch Ibuprofen Tablet PHA 01/05/25 Logged (Motrin Tablet) 10:45 Date of Service: Jan 05, 2025 Billing Provider: KENDAL ROBLERO NP Common Visit Codes: [id number] INP/OBS CARE(HIGH) KENDAL ROBLERO NP Jan 05, 2025 10:45
[2025-01-05] MEDS: IBUPROFEN 400 MG TAB PO PRN (13:00)
--- NOTE | 2025-01-11 13:32 | DVHSR ---
APPROVED REPORT EXAM: Two-dimensional and M-mode echocardiogram with Doppler and color Doppler. Blood Pressure: 117/68 mmHg INDICATION ?CHF RISK FACTORS Height: 5' 7", Weight: 156 DIMENSIONS LVDd4.8 (3.8-5.7cm)LA (2D)3.4 (1.9-4.0cm)Aortic Root3.4 (2.0-3.7cm) LVDs3.1 (2.5-4.0cm)LA (MM) (1.9-4.0cm)Aortic Cusp Exc2.0 (1.5-2.0cm) EF (%) 65.0 (55-70%)Rt. Atrium3.7 (1.9-4.0cm)Asc. Aorta cm IVSd0.9 (0.7-1.1cm)RV (D) (1.8-2.4cm) PWd0.9 (0.7-1.1cm) Mitral Valve MitralMitral Stenosis E wave0.90m/sMV Mean GR.mmHg A wave0.80m/sMV Peak GR.mmHg E/A ratio1.12D MVAcm2 Aortic Valve Aortic ValveAortic Stenosis V11.40m/Mary Mean GR.6mmHg V21.60m/Mary Peak GR.10mmHg LVOT Diameter2.3 (1.8-2.4cm)Doppler AVA3.63cm2 Pulmonic Valve V20.90m/s Tricuspid Valve TR Velocity2.80m/s [id number] Conclusion lvef 70% by visual estimate normal rv function normal atria no severe valve abnormalities
== END 2025-01-05 17:45 | disposition home or self-care (01) | DRG 871 ==
LOC: EEVIPCON 17:16 → ER 17:16 → EEVIPCON 22:43 → OVERFLOW 22:43 → CATH ICU 01-04 21:20 → TELE-WESTW 01-05 12:45
PROVIDERS: ADMIT Nurse Practitioner Acute Care; ATTEND Nurse Practitioner Acute Care
PROC: 02HV33Z Insertion of Infusion Device into Superior Vena Cava, Percutaneous Approach (ICD-10-PCS; principal; 2025-01-04)
PROC: B548ZZA Ultrasonography of Superior Vena Cava, Guidance (ICD-10-PCS; 2025-01-04)
DX: A41.9 Sepsis, unspecified organism (principal); R57.1 Hypovolemic shock; R65.21 Severe sepsis with septic shock; K52.9 Noninfective gastroenteritis and colitis, unspecified; K57.30 Diverticulosis of large intestine without perforation or abscess without bleeding; E83.42 Hypomagnesemia; J45.909 Unspecified asthma, uncomplicated; F41.9 Anxiety disorder, unspecified; M06.9 Rheumatoid arthritis, unspecified; Z90.49 Acquired absence of other specified parts of digestive tract; Z79.899 Other long term (current) drug therapy
CPT/HCPCS: 36415; 36569; 70450; 71045; 74018; 74176; 76937; 80048; 80053; 80307; 81001; 82270; 83605; 83690; 83735; 84443; 84484; 85025; 85048; 85610; 87040; 87045; 87081; 87086; 87426; 87427; 87804; 93005; 93306; 96361; 96374; 96375; G0378; J2405; J2470; J2543; J3490